=== PATIENT | female | born 1980 | race Caucasian/White ===

== ENCOUNTER 2017-07-02 23:44 | Emergency (ER) | payer MEDICARE, MEDICAID ==
[~2017-07-02] VITALS: Ht 157.5 cm; Wt 79.5 kg
[2017-07-03 00:01] VITALS: BP 163/109
== END 2017-07-03 00:53 | disposition left against medical advice (07) ==
LOC: ER 23:45
DX: K08.89 Other specified disorders of teeth and supporting structures (principal); Z53.21 Procedure and treatment not carried out due to patient leaving prior to being seen by health care provider

== ENCOUNTER 2017-12-14 09:07 | Emergency (ER) | payer MEDICARE, MEDICAID ==
[~2017-12-14] VITALS: Ht 157.5 cm; Wt 81.8 kg
[2017-12-14 09:09] VITALS: BP 135/81
[2017-12-14] MEDS ORDERED: pantoprazole 40mg Tablet.DR PO STA (09:39)
[2017-12-14] MEDS ORDERED: LIDOcaine Viscous 15ml cup MM STA (09:39)
[2017-12-14] MEDS ORDERED: ondansetron 4mg rapidly disintigrating tab PO ONE (09:40)
[2017-12-14] MEDS ORDERED: mag hydrox/Alum hydrox/simeth 30ml oral suspension PO ONE (09:40)
[2017-12-14] MEDS ORDERED: ONDA4TAB12 PO (09:47)
[2017-12-14] MEDS ORDERED: OMEP20TA5 PO (09:47)
== END 2017-12-14 10:11 | disposition home or self-care (01) ==
LOC: ER 09:07
DX: K29.00 Acute gastritis without bleeding (principal); K43.9 Ventral hernia without obstruction or gangrene; M54.9 Dorsalgia, unspecified; M54.2 Cervicalgia; G89.29 Other chronic pain; F17.200 Nicotine dependence, unspecified, uncomplicated; Z90.49 Acquired absence of other specified parts of digestive tract; Z98.51 Tubal ligation status; Z88.8 Allergy status to other drugs, medicaments and biological substances; Z79.899 Other long term (current) drug therapy
CPT/HCPCS: 99284

== ENCOUNTER 2018-04-05 00:58 | Emergency (ER) | payer MEDICARE, MEDICAID ==
[~2018-04-05] VITALS: Ht 157.5 cm; Wt 76.4 kg
[~2018-04-05 00:58] MED LIST: OMEP20TA5 PO; ONDA4TAB12 PO
[2018-04-05] MEDS ORDERED: normal saline 1000ML IV soln IVB ONE (01:20)
[2018-04-05] MEDS ORDERED: LORazepam 2 mg/ml vial IV ONE (01:20)
[2018-04-05 01:52] LABS: COLOR,URINE YELLOW (Yellow); GLUCOSE, URINE NEGATIVE (Neg); KETONES,URINE NEGATIVE (Neg); LEUKOCYTE ESTERASE ,URINE NEGATIVE (Neg); NITRITES, URINE NEGATIVE (Neg); OCCULT BLOOD,URINE NEGATIVE (Neg); PH,URINE 5.5 (4.8-8.0); PROTEIN,URINE 100 mg/dl (Neg); URINE HCG NEGATIVE (NEG)
[2018-04-05 01:53] LABS: D-DIMER 0.56 MG/L FEU (0-0.50)
[2018-04-05 01:55] LABS: BASOPHILS # (AUTO) 0.1 X10'3 (0-0.2); BASOPHILS % (AUTO) 1.1 % (0-1); EOSINOPHILS # (AUTO) 0.2 X10'3 (0-0.9); EOSINOPHILS % (AUTO) 1.7 % (0-6); HEMATOCRIT 33.8 % (35.0-45.0); HEMOGLOBIN 10.5 g/dl (12.0-16.0); LYMPHOCYTES # (AUTO) 4.1 X10'3 (1.1-4.8); LYMPHOCYTES % (AUTO) 31.3 % (21-51); MEAN CORPUSCULAR HEMOGLOBIN 23.1 PG (27.0-31.0); MEAN CORPUSCULAR VOLUME 74.3 FL (78-98); MEAN PLATELET VOLUME 8.8 FL (7.4-10.4); MONOCYTES # (AUTO) 0.8 X10'3 (0-0.9); MONOCYTES % (AUTO) 6.2 % (2-12); NEUTROPHILS # (AUTO) 7.8 X10'3 (1.8-7.7); NEUTROPHILS % (AUTO) 59.7 % (42-75); PLATELET COUNT 442 X10'3 (140-440); RED BLOOD COUNT 4.54 X10'6 (4.20-5.60); RED CELL DISTRIBUTION WIDTH 19.8 % (11.5-14.5)
[2018-04-05 01:58] LABS: UA COLLECTION TYPE CLN CATCH MIDSTREAM
[2018-04-05 01:59] LABS: CLARITY,URINE TURBID (Clear)
[2018-04-05 02:00] LABS: ALANINE AMINOTRANSFERASE 87 U/L (12-78); ALBUMIN 3.7 G/DL (3.4-5.0); ALBUMIN/GLOBULIN RATIO 0.9 (1.1-1.5); ALKALINE PHOSPHATASE 139 IU/L (46-116); ANION GAP 11 (8-16); ASPARTATE AMINO TRANSFERASE 44 U/L (10-37); BILIRUBIN,TOTAL 0.2 MG/DL (0.1-1.0); BLOOD UREA NITROGEN 15 MG/DL (7-18); CALCIUM 9.3 MG/DL (8.5-10.1); CHLORIDE 101 MMOL/L (99-107); CREATININE 0.79 MG/DL (0.40-0.90); GLUCOSE 141 MG/DL (70-104); POTASSIUM 3.5 MMOL/L (3.5-5.1); SODIUM 134 MMOL/L (135-145); TOTAL CARBON DIOXIDE 21.8 MMOL/L (24-32); TOTAL PROTEIN 7.9 G/DL (6.4-8.2); eGFR 82 ML/MIN
[2018-04-05 02:01] LABS: BACTERIA,URINE 2+ /HPF (Neg); MUCUS STRANDS MANY /LPF (Neg); RBC,URINE NONE SEEN /HPF (0-2); SQUAMOUS EPITHELIAL CELL,UR MANY /LPF (FEW); WBC,URINE 0-4 /HPF (0-4)
[2018-04-05 03:08] VITALS: BP 111/79
== END 2018-04-05 03:10 | disposition home or self-care (01) ==
LOC: ER 00:59
DX: R42 Dizziness and giddiness (principal); G89.29 Other chronic pain; M79.7 Fibromyalgia; Z90.49 Acquired absence of other specified parts of digestive tract; Z98.890 Other specified postprocedural states; Z98.51 Tubal ligation status; Z88.8 Allergy status to other drugs, medicaments and biological substances; Z79.899 Other long term (current) drug therapy; Z79.82 Long term (current) use of aspirin
CPT/HCPCS: 36415; 80053; 81001; 81025; 85025; 85379; 93005; 96361; 96374; 99284; J2060; J7030

== ENCOUNTER 2018-06-14 23:32 | Emergency (ER) | payer MEDICARE, MEDICAID ==
[~2018-06-14] VITALS: Ht 157.5 cm; Wt 77.3 kg
[2018-06-15] MEDS ORDERED: HYDROcodone/acetaminophen 5mg/325mg tablet PO ONE ×2 (00:20→01:30)
[2018-06-15] MEDS ORDERED: ketorolac trometh inj. 60 MG/2 ML VIAL IM ONE (00:20)
[2018-06-15] MEDS ORDERED: cloNIDine 0.1 mg tablet PO ONE (01:45)
[2018-06-15] MEDS ORDERED: labetalol 20mg/4ml (5mg/ml) syringe IV PRN (01:45)
[2018-06-15 02:15] VITALS: BP 159/102
== END 2018-06-15 02:31 | disposition home or self-care (01) ==
LOC: ER 23:32
DX: G44.209 Tension-type headache, unspecified, not intractable (principal); G89.29 Other chronic pain; Z86.73 Personal history of transient ischemic attack (TIA), and cerebral infarction without residual deficits; Z90.49 Acquired absence of other specified parts of digestive tract; Z98.51 Tubal ligation status; Z98.890 Other specified postprocedural states; Z88.8 Allergy status to other drugs, medicaments and biological substances; Z79.899 Other long term (current) drug therapy
CPT/HCPCS: 96372; 96374; 99283; J1885; J3490

== ENCOUNTER 2018-07-22 06:01 | Emergency (ER) | payer MEDICARE, MEDICAID ==
[~2018-07-22] VITALS: Ht 157.5 cm; Wt 79.0 kg
[2018-07-22] MEDS ORDERED: ketorolac tromethamine 15mg/ml inj. IM ONE (06:40)
[2018-07-22] MEDS ORDERED: dexamethasone sod phosphate 10mg/ml inj IV STA (07:09)
[2018-07-22] MEDS ORDERED: SUMAtriptan succ. 6 MG/0.5ml vial SQ ONE (07:10)
[2018-07-22] MEDS ORDERED: metoclopramide 5 mg/ml inj IV ONE (07:10)
[2018-07-22] MEDS ORDERED: normal saline 1000ML IV soln IVB ONE (07:10)
[2018-07-22 07:26] VITALS: BP 163/103
== END 2018-07-22 08:06 | disposition home or self-care (01) ==
LOC: ER 06:02
DX: G43.909 Migraine, unspecified, not intractable, without status migrainosus (principal); G89.29 Other chronic pain; M54.9 Dorsalgia, unspecified; Z90.49 Acquired absence of other specified parts of digestive tract; Z98.51 Tubal ligation status; Z88.8 Allergy status to other drugs, medicaments and biological substances; Z86.73 Personal history of transient ischemic attack (TIA), and cerebral infarction without residual deficits
CPT/HCPCS: 96372; 96374; 96375; 99283; J1100; J1885; J2765; J7030; 96361; J3030

== ENCOUNTER 2018-10-13 23:26 | Emergency (ER) | payer MEDICARE, MEDICAID ==
[~2018-10-13] VITALS: Ht 157.5 cm; Wt 79.0 kg
[2018-10-14 00:25] LABS: CLARITY,URINE CLEAR (Clear); COLOR,URINE YELLOW (Yellow); GLUCOSE, URINE NEGATIVE (Neg); KETONES,URINE NEGATIVE (Neg); LEUKOCYTE ESTERASE ,URINE NEGATIVE (Neg); NITRITES, URINE NEGATIVE (Neg); OCCULT BLOOD,URINE NEGATIVE (Neg); PH,URINE 6.5 (4.8-8.0); PROTEIN,URINE NEGATIVE (Neg); UROBILINOGEN,URINE 0.2 E.U/dL (0.2-1.0)
[2018-10-14 00:30] LABS: UA COLLECTION TYPE CLN CATCH MIDSTREAM
[2018-10-14 00:40] LABS: BASOPHILS # (AUTO) 0.2 X10'3 (0-0.2); BASOPHILS % (AUTO) 1.3 % (0-1); EOSINOPHILS # (AUTO) 0.1 X10'3 (0-0.9); EOSINOPHILS % (AUTO) 0.9 % (0-6); HEMOGLOBIN 8.4 g/dl (12.0-16.0); LYMPHOCYTES # (AUTO) 4.3 X10'3 (1.1-4.8); LYMPHOCYTES % (AUTO) 36.6 % (21-51); MEAN CORPUSCULAR HEMOGLOBIN 19.8 PG (27.0-31.0); MEAN CORPUSCULAR HGB CONC 30.1 g/dL (33.0-36.5); MEAN CORPUSCULAR VOLUME 65.8 FL (78-98); MEAN PLATELET VOLUME 7.4 FL (7.4-10.4); MONOCYTES # (AUTO) 0.7 X10'3 (0-0.9); MONOCYTES % (AUTO) 5.7 % (2-12); NEUTROPHILS # (AUTO) 6.6 X10'3 (1.8-7.7); NEUTROPHILS % (AUTO) 55.5 % (42-75); PLATELET COUNT 433 X10'3 (140-440); RED BLOOD COUNT 4.26 X10'6 (4.20-5.60); RED CELL DISTRIBUTION WIDTH 20.2 % (11.5-14.5); WHITE BLOOD COUNT 11.9 X10'3 (4.5-11.0)
[2018-10-14 00:49] LABS: ALANINE AMINOTRANSFERASE 25 U/L (12-78); ALBUMIN 3.3 G/DL (3.4-5.0); ALBUMIN/GLOBULIN RATIO 0.9 (1.1-1.5); ALKALINE PHOSPHATASE 53 IU/L (46-116); AMYLASE 57 U/L (25-115); ANION GAP 7 (8-16); ASPARTATE AMINO TRANSFERASE 15 U/L (10-37); BILIRUBIN,TOTAL 0.2 MG/DL (0.1-1.0); BLOOD UREA NITROGEN 12 MG/DL (7-18); BUN/CREATININE RATIO 17.6 (6.6-38.0); CALCIUM 8.5 MG/DL (8.5-10.1); CHLORIDE 104 MMOL/L (99-107); CREATININE 0.68 MG/DL (0.40-0.90); GLUCOSE 90 MG/DL (70-104); LIPASE 178 U/L (73-393); POTASSIUM 3.6 MMOL/L (3.5-5.1); SODIUM 137 MMOL/L (135-145); TOTAL CARBON DIOXIDE 26.5 MMOL/L (24-32); eGFR > 90 ML/MIN
[2018-10-14 01:38] LABS: ANISOCYTOSIS 3+; ELLIPTOCYTES FEW; MICROCYTOSIS 2+; PLATELET ESTIMATE NORMAL; TARGET CELLS FEW
--- NOTE | 2018-10-14 01:54 | NUR ---
Shikha galloway in [facility] - 10/14/[address] AT [facility].
[2018-10-14 02:00] VITALS: BP 136/97
--- NOTE | 2018-10-14 02:00 | NUR ---
DR. GORMAN AT BEDSIDE TALKING WITH PT AND HER BOYFRIEND ABOUT RESULTS. PT REPORTS FRUSTRATION WITH FINDINGS SHE BELIEVES SOMETHING IS WRONG THIS PAIN TO HER LEFT ABD CAME ON SUDDENLY A FEW DAYS AGO AND IS ONLY WORSENING. MD REPORTS SHE BELIEVES IT IS MUSCULAR FROM HER COUGHING. PT THEN REPORTED TO ME SHE WAS READY TO LEAVE AND HAD PULLED OUT HER IV. SHE WAS TEARFUL. PT WAS POLITE AT TIME OF DC BUT REITERATED HER FRUSTRATION ABOUT BEING DISCHAREGED.
[2018-10-14] MEDS ORDERED: BENZ-16 PO (02:09)
[2018-10-14 08:34] LABS: URINE HCG NEGATIVE (NEG)
== END 2018-10-14 02:17 | disposition home or self-care (01) ==
LOC: ER 23:27
DX: R10.9 Unspecified abdominal pain (principal); R42 Dizziness and giddiness; R11.2 Nausea with vomiting, unspecified; G43.909 Migraine, unspecified, not intractable, without status migrainosus; G89.29 Other chronic pain; Z86.73 Personal history of transient ischemic attack (TIA), and cerebral infarction without residual deficits; Z90.49 Acquired absence of other specified parts of digestive tract; Z98.51 Tubal ligation status; Z88.8 Allergy status to other drugs, medicaments and biological substances; Z79.899 Other long term (current) drug therapy
CPT/HCPCS: 36415; 80053; 81003; 81025; 82150; 83690; 85025; 85610; 99283

== ENCOUNTER 2019-05-14 12:29 | Emergency (ER) | payer MEDICARE, MEDICAID ==
[~2019-05-14] VITALS: Ht 157.5 cm; Wt 76.4 kg
[2019-05-14] MEDS ORDERED: diphenhydrAMINE 50 mg/ml inj IV ONE (14:50)
[2019-05-14] MEDS ORDERED: normal saline 1000ML IV soln IVB ONE (14:50)
[2019-05-14] MEDS ORDERED: ketorolac trometh. 30mg/ml inj. IV ONE (14:50)
[2019-05-14] MEDS ORDERED: proCHLORperazine 10 MG/2 ml inj IV ONE (14:55)
[2019-05-14] MEDS ORDERED: SUMAtriptan succ. 6 MG/0.5ml vial SQ ONE (14:55)
--- NOTE | 2019-05-14 15:19 | NUR ---
spoke to pt re toradol she shtates that she has taken it before, no issues in the past, IM
[2019-05-14 15:45] VITALS: BP 126/85
[2019-05-14] MEDS ORDERED: ketorolac trometh inj. 60 MG/2 ML VIAL IM ONE (15:45)
== END 2019-05-14 16:04 | disposition home or self-care (01) ==
LOC: ER 12:30
DX: G43.909 Migraine, unspecified, not intractable, without status migrainosus (principal); I10 Essential (primary) hypertension; M79.7 Fibromyalgia; G89.29 Other chronic pain; F41.9 Anxiety disorder, unspecified; F32.9 Major depressive disorder, single episode, unspecified; F31.9 Bipolar disorder, unspecified; F10.99 Alcohol use, unspecified with unspecified alcohol-induced disorder; Z79.899 Other long term (current) drug therapy; Z90.49 Acquired absence of other specified parts of digestive tract; Z98.51 Tubal ligation status; Z98.890 Other specified postprocedural states; Z86.73 Personal history of transient ischemic attack (TIA), and cerebral infarction without residual deficits; Z88.8 Allergy status to other drugs, medicaments and biological substances; Y90.9 Presence of alcohol in blood, level not specified
CPT/HCPCS: 96372; 99283; J1885

== ENCOUNTER 2019-12-06 08:04 | Emergency (ER) | payer MEDICARE, MEDICAID ==
[~2019-12-06] VITALS: Ht 157.5 cm; Wt 79.0 kg
--- NOTE | 2019-12-06 08:27 | NUR ---
seen by dr hernandez
[2019-12-06] MEDS ORDERED: acetaminophen 325mg tablet PO ONE (08:30)
[2019-12-06] MEDS ORDERED: normal saline 1000ml 1,000 ML IV ONE (08:30)
[2019-12-06] MEDS ORDERED: aspirin 325mg tablet PO ONE (08:30)
[2019-12-06] MEDS ORDERED: metoclopramide 5 mg/ml inj IV ONE (08:30)
[2019-12-06] MEDS ORDERED: SUMAtriptan succ. 6 MG/0.5ml vial SQ ONE (08:30)
[2019-12-06] MEDS ORDERED: diphenhydrAMINE 50 mg/ml inj IV ONE (08:30)
[2019-12-06] MEDS ORDERED: ondansetron/PF 4mg/2ml inj IV ONE (08:40)
--- NOTE | 2019-12-06 09:06 | NUR ---
state still has cough and upest stomach but headache is getting better
[2019-12-06] MEDS ORDERED: proCHLORperazine 10 MG/2 ml inj IV ONE (09:15)
[2019-12-06] MEDS ORDERED: LORazepam 2 mg/ml vial IV ONE (09:15)
[2019-12-06 09:16] VITALS: BP 132/75
== END 2019-12-06 09:39 | disposition home or self-care (01) ==
LOC: ER 08:05
DX: R51 Headache (principal); G89.29 Other chronic pain; F41.9 Anxiety disorder, unspecified; F31.9 Bipolar disorder, unspecified; Z86.73 Personal history of transient ischemic attack (TIA), and cerebral infarction without residual deficits; Z90.49 Acquired absence of other specified parts of digestive tract; Z98.51 Tubal ligation status; Z98.890 Other specified postprocedural states; Z72.89 Other problems related to lifestyle; Z88.8 Allergy status to other drugs, medicaments and biological substances; Z79.899 Other long term (current) drug therapy
CPT/HCPCS: 96372; 96374; 96375; 99284; J1200; J2405; J2765; J7030; J3030

== ENCOUNTER 2020-02-08 21:23 | Emergency (ER) | payer MEDICARE, MEDICAID ==
[~2020-02-08] VITALS: Ht 157.5 cm; Wt 77.3 kg
[2020-02-08 22:09] LABS: URINE HCG NEGATIVE (NEG)
[2020-02-08 22:14] LABS: CLARITY,URINE CLEAR (Clear); COLOR,URINE STRAW (Yellow); GLUCOSE, URINE NEGATIVE (Neg); KETONES,URINE NEGATIVE (Neg); LEUKOCYTE ESTERASE ,URINE NEGATIVE (Neg); NITRITES, URINE NEGATIVE (Neg); OCCULT BLOOD,URINE NEGATIVE (Neg); PROTEIN,URINE NEGATIVE (Neg); UROBILINOGEN,URINE 0.2 E.U/dL (0.2-1.0)
[2020-02-08 22:25] LABS: UA COLLECTION TYPE CLN CATCH MIDSTREAM
--- NOTE | 2020-02-08 22:26 | NUR ---
HECTOR Carreon at bedside for evaluation of patient.
[2020-02-08] MEDS ORDERED: ondansetron 4mg rapidly disintigrating tab PO ONE (22:40)
[2020-02-08] MEDS ORDERED: pantoprazole 40mg Tablet.DR PO ONE (22:40)
[2020-02-08 22:57] LABS: ALANINE AMINOTRANSFERASE 27 U/L (12-78); ALBUMIN 3.4 G/DL (3.4-5.0); ALBUMIN/GLOBULIN RATIO 0.9 (1.1-1.5); ALKALINE PHOSPHATASE 60 IU/L (46-116); AMYLASE 55 U/L (25-115); ANION GAP 7 (8-16); ASPARTATE AMINO TRANSFERASE 28 U/L (10-37); BILIRUBIN,TOTAL 0.2 MG/DL (0.1-1.0); BLOOD UREA NITROGEN 5 MG/DL (7-18); BUN/CREATININE RATIO 8.2 (6.6-38.0); CALCIUM 8.3 MG/DL (8.5-10.1); CHLORIDE 107 MMOL/L (99-107); CREATININE 0.61 MG/DL (0.40-0.90); GLUCOSE 76 MG/DL (70-104); LIPASE 210 U/L (73-393); POTASSIUM 3.2 MMOL/L (3.5-5.1); SODIUM 140 MMOL/L (135-145); TOTAL CARBON DIOXIDE 25.7 MMOL/L (24-32); TOTAL PROTEIN 7.4 G/DL (6.4-8.2); eGFR > 90 ML/MIN
[2020-02-08 23:04] LABS: HEMATOCRIT 27.9 % (35.0-45.0); HEMOGLOBIN 8.8 g/dl (12.0-16.0); MEAN CORPUSCULAR HEMOGLOBIN 18.4 PG (27.0-31.0); MEAN CORPUSCULAR HGB CONC 31.5 g/dL (33.0-36.5); MEAN CORPUSCULAR VOLUME 58.3 FL (78-98); MEAN PLATELET VOLUME 8.5 FL (7.4-10.4); PLATELET COUNT 494 X10'3 (140-440); RED BLOOD COUNT 4.79 X10'6 (4.20-5.60); RED CELL DISTRIBUTION WIDTH 19.9 % (11.5-14.5); WHITE BLOOD COUNT 10.5 X10'3 (4.5-11.0)
[2020-02-08 23:09] LABS: TOTAL CELLS COUNTED 100
[2020-02-08 23:10] LABS: ANISOCYTOSIS 3+; HYPOCHROMASIA 3+; MICROCYTOSIS 2+; PLATELET ESTIMATE INCREASED
[2020-02-08 23:11] LABS: ELLIPTOCYTES FEW; POLYCHROMASIA 1+; TARGET CELLS 1+
[2020-02-08 23:41] VITALS: BP 160/76
== END 2020-02-08 23:42 | disposition home or self-care (01) ==
LOC: ER 21:24
DX: K21.9 Gastro-esophageal reflux disease without esophagitis (principal); D64.9 Anemia, unspecified; G43.909 Migraine, unspecified, not intractable, without status migrainosus; G89.29 Other chronic pain; F41.9 Anxiety disorder, unspecified; F31.9 Bipolar disorder, unspecified; Z86.73 Personal history of transient ischemic attack (TIA), and cerebral infarction without residual deficits; Z90.49 Acquired absence of other specified parts of digestive tract; Z98.51 Tubal ligation status; Z88.8 Allergy status to other drugs, medicaments and biological substances; Z79.899 Other long term (current) drug therapy
CPT/HCPCS: 36415; 80053; 81003; 81025; 82150; 83690; 85007; 85025; 99283

== ENCOUNTER 2024-05-15 05:10 | Emergency (ER) | payer MEDICARE, MEDICAID ==
[~2024-05-15] VITALS: Ht 157.5 cm; Wt 77.3 kg
[~2024-05-15 05:10] MED LIST changes: +OMEP20TA43 PO; -OMEP20TA5 PO; +ONDA-243 PO; +ONDA-245 PO; -ONDA4TAB12 PO
[2024-05-15 05:12] VITALS: BP 170/113; PULSE 113; RESP 18; TEMP 98.4; O2SAT 97
== END 2024-05-15 10:04 | disposition left against medical advice (07) ==
LOC: ER 05:10
DX: R22.0 Localized swelling, mass and lump, head (principal); Z88.8 Allergy status to other drugs, medicaments and biological substances; Z53.21 Procedure and treatment not carried out due to patient leaving prior to being seen by health care provider

== ENCOUNTER 2024-05-23 19:09 | Inpatient (IN) | payer MEDICARE, MEDICAID ==
[~2024-05-23] VITALS: Ht 157.5 cm; Wt 64.0 kg
[2024-05-23] MEDS: LORazepam 2 mg/ml vial ONE ×2 (21:34→22:09)
[2024-05-23 21:57] LABS: HEMOGLOBIN 10.9 g/dl (12.0-16.0); MEAN CORPUSCULAR VOLUME 83.6 FL (78-98); NEUTROPHILS # (AUTO) 8.1 X10'3 (1.8-7.7)
[2024-05-23 21:59] LABS: BASOPHILS # (AUTO) 0.1 X10'3 (0-0.2); BASOPHILS % (AUTO) 0.5 % (0-1); EOSINOPHILS # (AUTO) 0.2 X10'3 (0-0.9); EOSINOPHILS % (AUTO) 1.2 % (0-6); HEMATOCRIT 39.1 % (35.0-45.0); LYMPHOCYTES # (AUTO) 4.8 X10'3 (1.1-4.8); LYMPHOCYTES % (AUTO) 32.3 % (21-51); MEAN CORPUSCULAR HEMOGLOBIN 23.3 PG (27.0-31.0); MEAN CORPUSCULAR HGB CONC 27.8 g/dL (33.0-36.5); MEAN PLATELET VOLUME 9.3 FL (7.4-10.4); MONOCYTES # (AUTO) 1.7 X10'3 (0-0.9); MONOCYTES % (AUTO) 11.5 % (2-12); NEUTROPHILS % (AUTO) 54.5 % (42-75); PLATELET COUNT 197 X10'3 (140-440); RED BLOOD COUNT 4.68 X10'6 (4.20-5.60); RED CELL DISTRIBUTION WIDTH 29.1 % (11.5-14.5); WHITE BLOOD COUNT 14.8 X10'3 (4.5-11.0)
[2024-05-23] MEDS: normal saline 1000ML IV soln IV ONE (22:10)
[2024-05-23 22:13] LABS: ALBUMIN 3.7 G/DL (3.4-5.0); ANION GAP 30 (8-16); BLOOD UREA NITROGEN 5 MG/DL (7-18); BUN/CREATININE RATIO 4.3 (10.0-20.0); CALCIUM 9.3 MG/DL (8.5-10.1); CHLORIDE 97 MMOL/L (99-107); CREATININE 1.16 MG/DL (0.40-0.90); GLUCOSE 186 MG/DL (70-104); MAGNESIUM 2.1 MG/DL (1.5-2.4); SODIUM 139 MMOL/L (135-145); eCRCL 49 ML/MIN; eGFR 51 ML/MIN
[2024-05-23 22:15] LABS: ETHANOL < 10 MG/DL (<10)
[2024-05-23 22:18] LABS: POTASSIUM 2.9 MMOL/L (3.5-5.1); TOTAL CARBON DIOXIDE 12.3 MMOL/L (24-32)
[2024-05-23] MEDS ORDERED: magnesium sulf-water 2g/50mL 50 ML IV PRN (22:25)
[2024-05-23] MEDS ORDERED: magnesium sulf-water 4G/100mL 100 ML IV PRN (22:25)
[2024-05-23] MEDS ORDERED: potassium Cl 20 mEq SR tablet PO PRN ×2 (22:25)
[2024-05-23] MEDS ORDERED: magnesium Cl slow-release 64mg tablet PO PRN (22:25)
[2024-05-23 22:33] LABS: ANISOCYTOSIS 3+; MICROCYTOSIS 3+; PLATELET ESTIMATE NORMAL; POIKILOCYTOSIS 1+
[2024-05-23 22:48] LABS: LACTIC SEPSIS 21.3 MMOL/L (0.4-2.0)
[2024-05-23] MEDS: potassium Cl 40MEQ/1/2NS 520ml 520 ML IV PRN (22:58)
[2024-05-24] MEDS: ringers solution, lactated 1000ml IV soln IV ONE (00:19)
[2024-05-24] MEDS: levetiracetam-NACL1000mg/100ml 100 ML IV STA (00:20)
[2024-05-24] MEDS ORDERED: magnesium hydroxide 30ml (MOM) UD suspension PO PRN (01:20)
[2024-05-24] MEDS ORDERED: mag hydrox/Alum hydrox/simeth 30ml oral suspension PO PRN (01:20)
[2024-05-24] MEDS ORDERED: haloperidol lactate 5mg/ml inj IM PRN (01:20)
[2024-05-24] MEDS ORDERED: magnesium Cl slow-release 64mg tablet PO PRN (01:20)
[2024-05-24] MEDS ORDERED: morphine 2 MG/ML inj. syringe IV PRN ×2 (01:20)
[2024-05-24] MEDS ORDERED: potassium Cl 40MEQ/1/2NS 520ml 520 ML IV PRN (01:20)
[2024-05-24] MEDS ORDERED: dextrose 50%-water 50ml dispensing syringe IV PRN (01:20)
[2024-05-24] MEDS ORDERED: potassium Cl 20 mEq SR tablet PO PRN ×2 (01:20)
[2024-05-24] MEDS ORDERED: ondansetron/PF 4mg/2ml inj IV PRN (01:20)
[2024-05-24] MEDS ORDERED: acetaminophen 325mg tablet PO PRN (01:20)
[2024-05-24] MEDS ORDERED: magnesium sulf-water 2g/50mL 50 ML IV PRN (01:20)
[2024-05-24] MEDS ORDERED: magnesium sulf-water 4G/100mL 100 ML IV PRN (01:20)
[2024-05-24 01:39] LABS: MAGNESIUM 2.3 MG/DL (1.5-2.4); POTASSIUM 3.9 MMOL/L (3.5-5.1)
[2024-05-24 01:53] LABS: URINE HCG NEGATIVE (NEG)
[2024-05-24 02:01] LABS: BILIRUBIN,URINE NEGATIVE (Neg); CLARITY,URINE CLEAR (Clear); COLOR,URINE YELLOW (Yellow); GLUCOSE, URINE NEGATIVE (Neg); KETONES,URINE TRACE mg/dl (Neg); LEUKOCYTE ESTERASE ,URINE LARGE (Neg); NITRITES, URINE NEGATIVE (Neg); OCCULT BLOOD,URINE LARGE (Neg); PH,URINE 7.5 (4.8-8.0); PROTEIN,URINE 30 mg/dl (Neg); UROBILINOGEN,URINE 0.2 E.U/dL (0.2-1.0)
[2024-05-24 02:06] LABS: URINE AMPHETAMINE SCREEN NEGATIVE (Neg); URINE BARBITUATE SCREEN NEGATIVE (Neg); URINE BENZODIAZEPINES SCREEN NEGATIVE (Neg); URINE CANNABINOID SCREEN NEGATIVE (Neg); URINE COCAINE SCREEN NEGATIVE (Neg); URINE METHADONE SCREEN NEGATIVE (Neg); URINE OPIATE SCREEN NEGATIVE (Neg); URINE PHENCYCLIDINE SCREEN NEGATIVE (Neg)
[2024-05-24 02:10] LABS: UA COLLECTION TYPE CLN CATCH MIDSTREAM
[2024-05-24 02:13] LABS: WBC,URINE 30-50 /HPF (0-4)
[2024-05-24 02:14] LABS: BACTERIA,URINE 1+ /HPF (Neg); MUCUS STRANDS FEW /LPF (Neg); SQUAMOUS EPITHELIAL CELL,UR MODERATE /LPF (FEW)
[2024-05-24 02:52] LABS: TOTAL PROTEIN,URINE RANDOM 52.1 MG/DL
[2024-05-24 03:02] LABS: OSMOLALITY UA 163.5 MOSM/K (50-1400)
[2024-05-24] MEDS: sodium bicarbonate 1meq/ml inj 150 ML in dextrose 5%-water 1,000 ML IV SCH (03:08)
[2024-05-24] MEDS: normal saline 1000ml 1,000 ML IV ONE (03:11)
[2024-05-24] MEDS: normal saline 1000ml 1,000 ML IV SCH (03:19)
[2024-05-24 03:20] LABS: POTASSIUM 4.1 MMOL/L (3.5-5.1)
[2024-05-24 05:25] VITALS: BP 124/67; PULSE 88; RESP 22; TEMP 98.2; O2SAT 94
[2024-05-24] MEDS: LORazepam 2 mg/ml vial IV PRN ×2 (05:35→08:48)
[2024-05-24 06:00] VITALS: BP 119/75; PULSE 77; RESP 18; TEMP 97.4; O2SAT 97
[2024-05-24 06:01] VITALS: RESP 22
[2024-05-24] MEDS: K and/or MAG REPLACEMENT MC SCH ×2 (08:00)
[2024-05-24] MEDS: docusate sod 100mg capsule PO SCH (08:00)
[2024-05-24] MEDS: thiamine 100mg/ml 2ml inj. IV SCH (08:48)
[2024-05-24] MEDS: CefTRIAXone/D5W-Rocephin 1gm 50 ML IV SCH (08:48)
[2024-05-24] MEDS: folic acid 1mg/0.2ml inj IV SCH (08:48)
[2024-05-24 11:45] LABS: BASOPHILS % (AUTO) 0.3 % (0-1); EOSINOPHILS # (AUTO) 0.1 X10'3 (0-0.9); EOSINOPHILS % (AUTO) 0.8 % (0-6); HEMATOCRIT 26.8 % (35.0-45.0); HEMOGLOBIN 8.1 g/dl (12.0-16.0); LYMPHOCYTES # (AUTO) 1.1 X10'3 (1.1-4.8); LYMPHOCYTES % (AUTO) 16.5 % (21-51); MEAN CORPUSCULAR HEMOGLOBIN 23.5 PG (27.0-31.0); MEAN CORPUSCULAR HGB CONC 30.1 g/dL (33.0-36.5); MEAN CORPUSCULAR VOLUME 78.1 FL (78-98); MEAN PLATELET VOLUME 8.9 FL (7.4-10.4); MONOCYTES # (AUTO) 0.6 X10'3 (0-0.9); MONOCYTES % (AUTO) 8.8 % (2-12); NEUTROPHILS % (AUTO) 73.6 % (42-75); PLATELET COUNT 126 X10'3 (140-440); RED BLOOD COUNT 3.43 X10'6 (4.20-5.60); RED CELL DISTRIBUTION WIDTH 28.8 % (11.5-14.5); WHITE BLOOD COUNT 6.8 X10'3 (4.5-11.0)
[2024-05-24 12:00] VITALS: BP 129/100; PULSE 100; RESP 20; TEMP 97.7; O2SAT 96
[2024-05-24 12:06] LABS: ANISOCYTOSIS 3+; MICROCYTOSIS 1+; PLATELET ESTIMATE DECREASED; POLYCHROMASIA FEW; TARGET CELLS FEW
[2024-05-24 12:17] LABS: ALANINE AMINOTRANSFERASE 46 U/L (12-78); ALBUMIN 2.6 G/DL (3.4-5.0); ALBUMIN/GLOBULIN RATIO 0.8 (1.1-1.5); ALKALINE PHOSPHATASE 78 IU/L (46-116); ANION GAP 10 (8-16); ASPARTATE AMINO TRANSFERASE 53 U/L (10-37); BILIRUBIN,TOTAL 0.5 MG/DL (0.1-1.0); BLOOD UREA NITROGEN 3 MG/DL (7-18); BUN/CREATININE RATIO 10.7 (10.0-20.0); CALCIUM 6.8 MG/DL (8.5-10.1); CHLORIDE 109 MMOL/L (99-107); CREATININE 0.28 MG/DL (0.40-0.90); GLUCOSE 83 MG/DL (70-104); POTASSIUM 3.6 MMOL/L (3.5-5.1); SODIUM 142 MMOL/L (135-145); TOTAL CARBON DIOXIDE 23.4 MMOL/L (24-32); TOTAL PROTEIN 5.8 G/DL (6.4-8.2); eCRCL 205 ML/MIN; eGFR > 90 ML/MIN
[2024-05-24] MEDS: NICOTINE POLACRILEX 2 MG LOZENGE BC PRN (13:11)
[2024-05-24 15:00] VITALS: BP 133/73; PULSE 97; RESP 17; TEMP 97.6; O2SAT 97
[2024-05-28] MEDS ORDERED: thiamine 100mg tablet PO SCH (08:00)
[2024-05-28] MEDS ORDERED: folic acid 1mg tablet PO SCH (08:00)
== END 2024-05-24 16:10 | disposition left against medical advice (07) | DRG 871 ==
LOC: ER 19:09 → ED HOLD 05-24 01:15 → PCU 3S 05-24 05:15
PROVIDERS: ADMIT Internal Medicine; ATTEND Family Medicine
DX: A41.9 Sepsis, unspecified organism (principal); N17.0 Acute kidney failure with tubular necrosis; E87.20 Acidosis, unspecified; F10.939 Alcohol use, unspecified with withdrawal, unspecified; N39.0 Urinary tract infection, site not specified; E72.20 Disorder of urea cycle metabolism, unspecified; G40.409 Other generalized epilepsy and epileptic syndromes, not intractable, without status epilepticus; F31.9 Bipolar disorder, unspecified; G43.909 Migraine, unspecified, not intractable, without status migrainosus; F41.9 Anxiety disorder, unspecified; G47.00 Insomnia, unspecified; M54.9 Dorsalgia, unspecified; M79.7 Fibromyalgia; Z53.21 Procedure and treatment not carried out due to patient leaving prior to being seen by health care provider; I10 Essential (primary) hypertension; E87.6 Hypokalemia; Z86.73 Personal history of transient ischemic attack (TIA), and cerebral infarction without residual deficits; Z87.891 Personal history of nicotine dependence; Z88.8 Allergy status to other drugs, medicaments and biological substances; Z90.49 Acquired absence of other specified parts of digestive tract; Z98.891 History of uterine scar from previous surgery
CPT/HCPCS: 36415; 70450; 71045; 80048; 80053; 80305; 80320; 81001; 81025; 82140; 82570; 82948; 83605; 83690; 83735; 83930; 83935; 84132; 84145; 84156; 84300; 84484; 85008; 85025; 87040; 87081; 87088; 87207; 93005; 96365; 96375; 99285; A4615; G0378; J0696; J1953; J2060; J3411; J3480; J3490; J7030; J7070; J7120

== ENCOUNTER 2024-11-11 07:59 | Inpatient (IN) | payer MEDICARE, MEDICAID ==
[~2024-11-11] VITALS: Ht 156.2 cm; Wt 76.4 kg
[2024-11-11 08:03] VITALS: TEMP 98.8
[2024-11-11 08:32] LABS: MEAN PLATELET VOLUME 8.1 FL (7.4-10.4); RED CELL DISTRIBUTION WIDTH 29.9 % (11.5-14.5)
--- NOTE | 2024-11-11 08:39 | Physician Documentation ---
History of Present Illness ~ Chief Complaint: ETOH Stated Complaint: WITHDRAWL Time Seen by MD: 08:25 Primary Medical Doctor: riky groves HPI This is a 44-year-old female with history of chronic pain, currently off pain medication, self medicating with alcohol, drinks a bottle of rum a day, comes in for evaluation of anxiety, high blood pressure, shakes, similar to prior alcohol withdrawal. Last drink yesterday afternoon. No particular palliating or aggravating factors. Does have history of alcohol withdrawal on day five after quitting drinking. She did have generalized seizure at the time. Patient denies any chest pain or difficulty breathing at this time. She attempted to drink this morning, however she threw it up. She wants to quit drinking. However she states that of a she also will need to get enrolled in some sort of pain management to manage her chronic pain as currently alcohol is the only needs to control her chronic pain Medication Reconciliation Allergies: Coded Allergies: oxytocin (Verified Allergy, Severe, 05/15/24) naproxen (Verified Allergy, Unknown, 05/15/24) Scheduled Omeprazole (Omeprazole), 1 TAB PO DAILY Ondansetron 8mg ODT (Ondansetron Odt), 1 TAB PO Q6H Scheduled PRN ONDANSETRON ODT 4mg tablet (Ondansetron Odt), 1 TABLET PO Q6H PRN for nausea/vomiting Past Medical History Past Medical History: CVA/TIA/Stroke, Headache, Migraine, Pancreatitis, Chronic Pain, Chronic Back Pain, Fibromyalgia, Anxiety, Bipolar, Depression Past Surgical History: cholecystectomy, , tubal ligation Alcohol Use: Occasionally Drug Use: none Lives with: Family Lives In: Home Occupation: disabled Review of Systems ROS 10 point review of systems was performed and unless noted above in HPI is negative for acute process/complaint. Physical Exam Vital Signs: Temperature: 98.8, Source: Temporal, Heart Rate: 121, Respiratory Rate: 19, BP: 184/103, Pulse Oximetry: 98, Weight: 76.360 Oxygen Flow Rate: 0 Physical Exam GENERAL: Awake, alert, oriented, GCS 15, no apparent distress, non-toxic appearing, answers questions, follows commands appropriately. HEENT: Atraumatic, normocephalic, pupils equal, extraocular muscles intact, sclerae anicteric, mucus membranes moist, oropharynx is clear, no stridor. NECK: supple, full active range of motion, trachea midline, no thyromegaly, no lymphadenopathy, no JVD. CARDIOVASCULAR: Tachycardic and regular rate/rhythm, no murmurs/gallops/rubs, Pulses are 2+ in all extremities and symmetric. Capillary refill less than 2 seconds. PULMONARY: Nonlabored, good air movement ,no respiratory distress, speaking in full sentences, clear to auscultation bilaterally, no wheezing, no ronchi, no rales, no accessory muscle use. GASTROINTESTINAL: Soft, non-tender, non-distended, normal active bowel sounds, no organomegaly, no pulsatile masses, no CVA tenderness. NEUROLOGIC: Lucid with normal mental status. Normal facial symmetry. Moves all extremities symmetrically and with purpose. No truncal ataxia. Speech is fluid without evidence of dysarthria or aphasia, no focal deficits appreciated. MUSCULOSKELETAL: There is full range of motion of all extremities. There is no joint pain or joint swelling or joint erythema. There is no muscle pain or tenderness or swelling. EXTREMITIES: warm, well-perfused, no cyanosis, no clubbing, no edema, no acute deformities. Skin: warm, dry, no rashes or lesions, no jaundice, no petechiae orpurpura. No ecchymosis. PSYCHIATRIC: Anxious affect, normal insight, normal concentration. Focused exam: Tremulous, tongue fasciculations noted Progress Results/Orders Results/Orders Orders - SHAHNAZ BETANCOURT DO Urinalysis, Cult If Indicated (11/11/24 08:09) Hcg, Ur Ql (11/11/24 08:09) Mixed Venous (11/11/24 ) Ketones,Urine (11/11/24 08:25) Drug Screen, Urine (11/11/24 08:25) [facility] Withdr (11/11/24 08:25) Phenobarbital Inj (Phenobarbital Inj.) (11/11/24 09:00) Completed Orders - SHAHNAZ BETANCOURT DO Cbc/Diff (11/11/24 08:09) Lipase (11/11/24 08:09) CMP (11/11/24 08:09) Normal Saline 1000ml (Sodium Chloride 10 (11/11/24 08:25) Phenobarbital Inj (Phenobarbital Inj.) (11/11/24 20:00) Ethanol (11/11/24 08:25) Lorazepam Inj (Ativan Inj) (11/11/24 09:25) Medications Received in ER Medications (Trade) Dose Ordered Sig/Emre Route PRN Reason Start Time Stop Time Status Last Admin Dose Admin Sodium Chloride 1,000 ml @ 1,000 mls/hr ONCE ONCE IV 11/11/24 08:25 11/11/24 09:24 DC 11/11/24 09:16 1,000 MLS/HR (phenoBARBITAL inj.) 130 mg Q12H IV 11/11/24 09:00 11/11/24 09:18 130 MG (Ativan inj) 1 mg ONCE ONCE IV 11/11/24 09:25 11/11/24 09:26 DC 11/11/24 09:29 1 MG Vital Signs 11/11/24 11/11/24 08:03 10:11 Temp 98.8 Pulse 121 103 Resp 19 19 B/P (MAP) 184/103 153/87 (109) Pulse Ox 98 98 O2 Flow Rate 0 Laboratory Tests Test 11/11/24 08:25 White Blood Count 11.9 H Red Blood Count 4.41 Hemoglobin 10.1 L Hematocrit 33.2 L Mean Corpuscular Volume 75.3 L Mean Corpuscular Hemoglobin 22.9 L Mean Corpuscular Hemoglobin Concent 30.5 L Red Cell Distribution Width 29.9 H Platelet Count 321 Mean Platelet Volume 8.1 Neutrophils (%) (Auto) 77.0 H Lymphocytes (%) (Auto) 15.6 L Monocytes (%) (Auto) 5.7 Eosinophils (%) (Auto) 1.0 Basophils (%) (Auto) 0.7 Neutrophils # (Auto) 9.2 H Lymphocytes # (Auto) 1.9 Monocytes # (Auto) 0.7 Eosinophils # (Auto) 0.1 Basophils # (Auto) 0.1 CBC Comment Platelet Estimate Normal Red Blood Cell Morphology Perf Polychromasia Few Hypochromasia 1+ Basophilic Stippling Anisocytosis 3+ Microcytosis 1+ Target Cells Few Sodium Level 136 Potassium Level 3.6 Chloride Level 101 Carbon Dioxide Level 24.2 Anion Gap 11 Blood Urea Nitrogen 2 L Creatinine 0.51 Estimated GFR/1.73 m2 > 90 BUN/Creatinine Ratio 3.9 L Glucose Level 123 H Calcium Level 7.7 L Total Bilirubin 0.7 Aspartate Amino Transf (AST/SGOT) 34 Alanine Aminotransferase (ALT/SGPT) 22 Alkaline Phosphatase 116 Total Protein 7.2 Albumin 2.7 L Globulin 4.5 H Albumin/Globulin Ratio 0.6 L Lipase 44 Chemistry Comments Ethyl Alcohol Level < 10 Medical Decision Making Findings Facility Status: ED Holds, RME process The plan was discussed with the patient, who demonstrates clear understanding of the plan and is in agreement with the plan unless otherwise noted in the chart. All questions have been answered, all concerns were addressed unless otherwise documented. I was available throughout their ED stay for frequent reassessment and questions. Differential Diagnoses (considered and possible or likely): [Alcohol intoxication, alcohol withdrawal, complicated versus uncomplicated, electrolyte derangement, nausea vomiting, dehydration] ??Differential Diagnoses (considered and unlikely, not requiring evaluation currently): [Denies any other complaints at this time] MDM Data Please see [facility] for the following: Independent Historians and external Records Review. Historian: [Patient] Independent Historians: ?[Record review] Medication Management: [Reviewed medication list] Social History and determinants: [Reviewed] Please see the body of the note for the following: Any independent interpretations of ECG, imaging studies. All vitals signs/haemodynamics, ordered tests were independently reviewed and interpreted by myself. Nursing triage complaint and vitals reviewed, additional nursing notes were reviewed as available and I agree unless otherwise noted or documented in contradiction in the chart Vital Signs: Independently reviewed Labs: Independently interpreted Imaging: Independently interpreted Old Medical Records: Independently reviewed, see HPI for relevant summary and information Pulse Oximetry: [100%] interpreted as [normal on room air] by me [Cartographic Engineer: Tachycardic Rate, Regular rhythm, no ectopy, sinus tachycardia. reviewed and interpreted by me] Additionally notably showing: [Hemodynamics reviewed. The patient was not febrile, tachycardic, improved with the phenobarb and Ativan. Still hypotensive. Also improved. No evidence of respiratory distress. Laboratory workup notable for mild anemia. Chemistry shows a mild hypocalcemia, hypoalbuminemia, normal lipase. Toxicology shows negative ethanol.] Tests considered but not ordered include: [Imaging has been considerably does not appear to be necessary given presentation for alcohol withdrawal] Social Determinants of Health Impact: Patient was evaluated in [facility] [place] to healthcare due to below par ratio of patient to medical providers. [] Comorbid Conditions Impacting Present Evaluation and Care/Treatment: [Alcoholism, chronic pain] Management Discussions with other Healthcare Providers: [Hospitalist regarding admission] Treatment and Disposition Medication Management (Given or considered): []. See EMR for details Consideration for Hospitalization/Escalation/Deescalation of Care: Admission for observation has been considered, it appears to be necessary for further ma nagement of her alcohol withdrawal which is unlikely to be successful if managed outpatient with Librium. Additionally patient will need to address her chronic pain in some way in order to prevent relapse. ?ED Course:?[Patient had improved with the phenobarbital and Ativan treatment. She will require admission for alcohol withdrawal.] ?Shared decision making:?[] Code status:?FULL Please see the full Electronic Medical Record for full details of nursing documentation, medications list, other records of complete past medical history and conditions, vital signs, laboratory studies, and any radiologic study interpretations by radiologists. Portions of this note were completed using [employer] dictation software and as a result there may exist minor errors in spelling. I have reviewed elements of past family and social history and agree as included in note. Departure Disposition: ADMITTED INPATIENT Impression: Primary Impression: Alcohol withdrawal syndrome Additional Impressions: Alcohol dependence Chronic pain Condition: Improved Referrals: NO PRIMARY CARE PROVIDER (PCP) Signature Scribe Signature: No scribe Attestation: This note accurately reflects clinical decisions, work performed by myself, DO ASIA Lawrence NICHOLAS M DO Nov 11, 2024 08:39
[2024-11-11 08:56] LABS: CREATININE 0.51 MG/DL (0.40-0.90); ETHANOL < 10 MG/DL (<10); TOTAL CARBON DIOXIDE 24.2 MMOL/L (24-32); eCRCL 110 ML/MIN; eGFR > 90 ML/MIN
[2024-11-11 09:11] LABS: PLATELET ESTIMATE NORMAL
[2024-11-11] MEDS: normal saline 1000ml 1,000 ML IV ONE (09:16)
[2024-11-11] MEDS: normal saline 1000ml 1,000 ML IV SCH (12:15)
[2024-11-11] MEDS ORDERED: potassium Cl 40MEQ/1/2NS 520ml 520 ML IV PRN (12:15)
[2024-11-11] MEDS ORDERED: potassium Cl 20 mEq SR tablet PO PRN ×2 (12:15)
[2024-11-11] MEDS: nicotine 14mg patch - 24hr TD SCH (12:15)
[2024-11-11] MEDS ORDERED: HYDROcodone/acetaminophen 5mg/325mg tablet PO PRN (12:15)
[2024-11-11] MEDS ORDERED: magnesium Cl slow-release 64mg tablet PO PRN (12:15)
--- NOTE | 2024-11-11 12:25 | HISTORY AND PHYSICAL-Residence ---
History & Physical Providers to CC Resident Creating Document: OXANA CARVAJAL RES ~ History of Present Illness Primary Medical Doctor: riky groves Reason for Admit\Complaint: ETOH withdrawal History of Present Illness This is a 44-year-old female with a history of hypertension, heavy alcohol use disorder, and prior episodes of severe alcohol withdrawal (with hallucinations and seizures), most recently in May of this year. She presents to the ER with symptoms of acute alcohol withdrawal that began yesterday, including severe nausea and vomiting, inability to tolerate oral intake, shaky hands, moist palms, panic like symptoms, pacing behavior, blurry vision, and severe generalized headache. She denies any current hallucination or tactile disturbances. She also denies any chest pain, shortness of breath, fever or chills. She also reports a history of chronic pain including fibromyalgia chronic lower back pain and states that her pain is not well managed. Her primary care physician has stopped prescribing pain medications. As a result, she has been self medicating with alcohol and currently consumes approximately one bottle of rum per day. She expresses a strong desire to quit drinking but acknowledges that alcohol has been her only effective means of controlling her chronic pain. She believes that prescription in the [facility] we will be essential for her to successfully stopped drinking. Her past medical history is also significant for migraines, pancreatitis due to gallstones, fibromyalgia, anxiety/depression and bipolar disorder. Allergies: Coded Allergies: oxytocin (Verified Allergy, Severe, 05/15/24) naproxen (Verified Allergy, Unknown, 05/15/24) Home Medications Home Medications Active Ondansetron Odt (Ondansetron HCl) 8 Mg Tab.rapdis 1 Tab PO Q6H 3 Days Omeprazole 20 Mg Tablet.dr 1 Tab PO DAILY 30 Days Ondansetron Odt (Ondansetron HCl) 4 Mg Tab.rapdis 1 Tablet PO Q6H PRN may substitute pherergan 25mg q6hrs #12 per formulary Past Medical History Past Medical History Anxiety, depression, bipolar disorder, pancreatitis, chronic pain issues, fibromyalgia Past Surgical History Surgical History Comment Three section, cholecystectomy Past Social History Social History Comment She lives with her fiance who is not drinking at all. She self medicates her chronic pain issues with alcohol; drinks one bottle of rum daily. She smokes half a pack of cigarettes daily. Denies using alcohol. Smoking: Cigarettes, Less than 1 pack/day Alcohol Use: Occasionally Drug Use: None Lives with: Family Lives In: Home Occupation: disabled ROS All Other Systems: Reviewed and Negative ROS As stated above in the HPI, otherwise all systems are reviewed and negative. Exam Vitals: Vital Signs Date Time Temp Pulse Resp B/P (MAP) Pulse Ox O2 Delivery O2 Flow Rate FiO2 11/11/24 10:11 103 19 153/87 (109) 98 11/11/24 08:03 98.8 0 General: Agitated, pacing back and forth, HEENT: Conjunctiva pink, Sclera clear, Mucus Membranes moist. Neck: Supple without masses and tenderness. Resp: Unlabored. Lungs clear to auscultation bilaterally. Heart: Regular Rate and rhythm, normal S1 and S2 without murmur, rub or gallop. Abdomen: Reducible umbilical hernia Extremities: Bilateral severe hand tremors Skin: Warm and Dry. Diagnostic Data Last Recorded Lab Results: 11/11/2482411/11/24 08 Advance Care Planning Advanced Care plannin - 30 Minutes Additional Plan Assessment and plan 44-year-old female with a history of alcohol use disorder, chronic pain, fibromyalgia, bipolar disorder, and previous complicated alcohol withdrawal, presenting with signs of acute alcohol withdrawal. CIWA IR score is 31, consistent with severe withdrawal. Patient also reports chronic pain for which she has been self medicating with the alcohol due to limited access to pain management. Severe Alcohol Withdrawa; CIWA-Ar Score 31 Autonomic symptoms (e.g., palpitations, sweating, tachycardia, elevated blood pressure) Anxiety, insomnia, vivid dreams, Tremor, hyperreflexia, Headaches, Anorexia,N/V Alcohol withdrawal protocol in place: Symptom-triggered regimen for ALINA - Ativan 2 mg IV as needed for CIWA-Ar >10 (parameters included in the order). Fixed-schedule regimen for ALINA: Ativan 2 mg every 6 hours scheduled Transition to P.O: Tomorrow, we will transition to Chlordiazepoxide 25 mg PO every 6 hours on day 1, every 8 hours on day 2, every12 hours on day 3, every 24 hours (at night) on days 4 and 5, then discontinue Continue thiamine and folic acid IV Discussed initiation of medication assisted treatment i.e. naltrexone/acamprosate after stabilization volunteer services supervisor consulted Chronic pain Self medication with the alcohol Uses alcohol to manage chronic pain, including fibromyalgia and back pain Discussed nonopioid pain management i.e. gabapentin duloxetine, and physical therapy Emphasized avoidance of opioids given substance use history Tobacco use disorder Smokes up half pack/day Nicotine replacement therapy Smoking cessation counseling provided Bipolar disorder Anxiety/depression Monitor closely for mood destabilization or depressive symptoms Outpatient psychiatric consultation Code status: Full code DVT prophylaxis: Darek Carvajal Internal Medicine Resident Date of Service: Nov 11, 2024 Billing Provider: CYRIL ALONSO MD,OXANA, RES Nov 11, 2024 12:25
[2024-11-11] MEDS: thiamine 100mg/ml 2ml inj. IV SCH (13:00)
[2024-11-11 13:25] LABS: LEUKOCYTE ESTERASE ,URINE NEGATIVE (Neg); NITRITES, URINE POSITIVE (Neg); OCCULT BLOOD,URINE LARGE (Neg)
[2024-11-11 13:26] LABS: URINE HCG NEGATIVE (NEG)
[2024-11-11 13:33] LABS: UA COLLECTION TYPE CLN CATCH MIDSTREAM
[2024-11-11 13:35] LABS: SQUAMOUS EPITHELIAL CELL,UR MODERATE /LPF (FEW)
[2024-11-11 13:36] LABS: MUCUS STRANDS MODERATE /LPF (Neg)
[2024-11-11 13:49] LABS: URINE AMPHETAMINE SCREEN NEGATIVE (Neg); URINE BARBITUATE SCREEN NEGATIVE (Neg); URINE BENZODIAZEPINES SCREEN NEGATIVE (Neg); URINE COCAINE SCREEN NEGATIVE (Neg); URINE METHADONE SCREEN NEGATIVE (Neg); URINE OPIATE SCREEN NEGATIVE (Neg); URINE PHENCYCLIDINE SCREEN NEGATIVE (Neg)
[2024-11-11 14:11] VITALS: BP 121/79; PULSE 87; RESP 18; O2SAT 98
[2024-11-11] MEDS ORDERED: AMLO2.5T5 PO (15:02)
[2024-11-11] MEDS ORDERED: ATOR40TA72 PO (15:02)
[2024-11-11] MEDS ORDERED: LISI40TA13 PO (15:02)
[2024-11-11] MEDS ORDERED: ONDA-245 PO (15:04)
[2024-11-12] MEDS ORDERED: folic acid 1mg/0.2ml inj IV SCH (08:00)
[2024-11-12] MEDS ORDERED: multivitamins, therapeutics tablet PO SCH (08:00)
[2024-11-12] MEDS ORDERED: enoxaparin 40mg/0.4ml syringe SUBCUT SCH (08:00)
--- NOTE | 2024-11-12 16:50 | DISCHARGE SUMMARY-Residence ---
Discharge Summary Providers to CC Resident Creating Document: OXANA JIMENESJOSE ~ Discharge Summary Admission Diagnosis: Alcohol withdrawal Hospital Course DATE OF ADMISSION: NOVEMBER 11, 2024 DATE OF DISCHARGE: NOVEMBER 11, 2024 Discharge Diagnosis\Comment: Heavy alcohol use disorder Severe Alcohol Withdrawal; CIWA-Ar Score 31 Chronic pain issues Tobacco use disorder Bipolar disorder Anxiety/depression Operations\Procedures: none Consultants: none Complications: none Condition on DC: Stable (LEFT AGAINST MEDICAL ADVICE ) Discharge Summary: LEFT AGAINST MEDICAL ADVICE History of present illness: This is a 44-year-old female with a history of hypertension, heavy alcohol use disorder, and prior episodes of severe alcohol withdrawal (with hallucinations and seizures), most recently in May of this year. She presents to the ER with symptoms of acute alcohol withdrawal that began yesterday, including severe nausea and vomiting, inability to tolerate oral intake, shaky hands, moist palms, panic like symptoms, pacing behavior, blurry vision, and severe generalized headache. She denies any current hallucination or tactile disturbances. She also denies any chest pain, shortness of breath, fever or chills. She also reports a history of chronic pain including fibromyalgia chronic lower back pain and states that her pain is not well managed. Her primary care physician has stopped prescribing pain medications. As a result, she has been self medicating with alcohol and currently consumes approximately one bottle of rum per day. She expresses a strong desire to quit drinking but acknowledges that alcohol has been her only effective means of controlling her chronic pain. She believes that prescription in the [facility] program we will be essential for her to successfully stopped drinking. Her past medical history is also significant for migraines, pancreatitis due to gallstones, fibromyalgia, anxiety/depression and bipolar disorder. Hospital course: Upon admission, she was placed on CIWA protocol (initial score 31) and admitted to telemetry for close monitoring. She received supportive care including IV fluids, thiamine, folate, and symptom triggered benzodiazepine therapy. Her alcohol withdrawal symptoms began to improve gradually. However, the patient remained focused on pain management and continued to request narcotic medications. Despite ongoing reassessment and nonopioid alternatives being offered, she remained dissatisfied with pain control. Before the completion of withdrawal treatment or discharge planning, the patient LEFT AGAINST MEDICAL ADVICE in the evening of the same day of admission. *Problems/Diagnosis: (1) Alcohol withdrawal syndrome Status: Acute (2) Alcohol dependence Status: Acute (3) Alcohol withdrawal Status: Acute (4) Chronic pain Status: Acute Total Time Spent on D/C: Up to 30 Minutes Date of Service: Nov 12, 2024 Billing Provider: CYRIL ALONSO MD,OXANA, RES Nov 12, 2024 16:45
== END 2024-11-11 17:07 | disposition left against medical advice (07) | DRG 894 ==
LOC: ER 08:00 → ED HOLD 11:32 → ORTHO 4S 14:14
PROVIDERS: ADMIT Internal Medicine; ATTEND Internal Medicine
DX: F10.239 Alcohol dependence with withdrawal, unspecified (principal); F31.9 Bipolar disorder, unspecified; G89.29 Other chronic pain; Z53.21 Procedure and treatment not carried out due to patient leaving prior to being seen by health care provider; M79.7 Fibromyalgia; F41.9 Anxiety disorder, unspecified; G43.909 Migraine, unspecified, not intractable, without status migrainosus; Z88.8 Allergy status to other drugs, medicaments and biological substances; Z86.73 Personal history of transient ischemic attack (TIA), and cerebral infarction without residual deficits; Z90.49 Acquired absence of other specified parts of digestive tract; Z98.891 History of uterine scar from previous surgery
CPT/HCPCS: 36415; 80053; 80305; 80320; 81001; 81002; 81025; 83036; 83690; 85008; 85025; 87081; 87088; 96361; 96374; 96375; 96376; 99285; G0378; J2060; J2560; J7030

== ENCOUNTER 2025-02-01 20:01 | Emergency (ER) | payer MEDICARE, MEDICAID ==
[~2025-02-01 20:01] MED LIST changes: +AMLO2.5T5 PO; +ATOR40TA72 PO; +LISI40TA20 PO; -OMEP20TA43 PO; -ONDA-243 PO; -ONDA-245 PO
== END 2025-02-01 21:30 | disposition left against medical advice (07) ==
LOC: ER 20:01
DX: N39.0 Urinary tract infection, site not specified (principal); Z53.21 Procedure and treatment not carried out due to patient leaving prior to being seen by health care provider; Z88.6 Allergy status to analgesic agent; Z88.8 Allergy status to other drugs, medicaments and biological substances

== ENCOUNTER 2025-04-04 17:06 | Emergency (ER) | payer MEDICARE, MEDICAID ==
[~2025-04-04] VITALS: Ht 157.5 cm; Wt 80.9 kg
--- NOTE | 2025-04-04 17:30 | Physician Documentation ---
History of Present Illness ~ General Chief Complaint: ETOH Stated Complaint: ABD PAIN/WHOLE BODY NUMBNESS Time Seen by MD: 17:26 OK to notify your PCP?: Yes Primary Medical Doctor: riky groves Source: patient, RN/MD, EMS, RN notes reviewed, old records Mode of Arrival: EMS Exam Limitations: no limitations History of Present Illness Initial Comments 44 year old female with history of alcoholism reports abdominal discomfort and withdrawal symptoms. Denies fever, N/V/D. has history of pancreatitis. PATIENT STATES SHE HAS FIBROMYALGIA CHRONIC PAIN SYNDROME SEIZURES HIATAL HERNIA IN NOBODY IS TREATING MY PAIN ALCOHOL SEEMS TO WORK WELL. PATIENT STATES DETOX DOES NOT HELP ME MUCH. PATIENT GAVE MULTIPLE REASONS TO WHY SHE CONTINUES TO DRINK DESPITE BEING JAUNDICED AND HAVING CLEARLY SIGNS OF LIVER FAILURE. PATIENT IS ASKING FOR PAIN MEDICATIONS WELL SEDATIVES. Medication Reconciliation Allergies: Coded Allergies: oxytocin (Verified Allergy, Severe, 04/04/25) naproxen (Verified Allergy, Unknown, 04/04/25) Scheduled Amlodipine Besylate (Amlodipine Besylate), 1 TAB PO DAILY, (Reported) Atorvastatin Calcium (Atorvastatin Calcium), 1 TAB PO DAILY, (Reported) Ferrous Sulfate (Ferrous Sulfate), 1 TAB PO Q48H, (Reported) Lisinopril* (Lisinopril*), 1 TAB PO DAILY, (Reported) Scheduled PRN Chlordiazepoxide Hcl (Librium), 1 CAP PO TID PRN for anxiety Past Medical History Past Medical History: CVA/TIA/Stroke, Headache, Migraine, Pancreatitis, Chronic Pain, Chronic Back Pain, Fibromyalgia, Anxiety, Bipolar, Depression Past Surgical History: cholecystectomy, , tubal ligation Alcohol Use: Abuse Drug Use: none Lives with: Family Lives In: Home Occupation: disabled Review of Systems All Other Systems at this time: Reviewed and Negative Physical Exam Physical Exam Vital Signs: RN Vital Signs have been reviewed: Yes, Temperature: 97.6, Source: Oral, Heart Rate: 123, Respiratory Rate: 16, BP: 160/99, Pulse Oximetry: 98, Weight: 80.900 Oxygen Flow Rate: 0 Physical Exam Gen: no distress HEENT: PERRL, EOMI ICTERIC SCLERA Pulm: no distress CTAB CV: tachycardic Abd: soft, distended, nontender MSK: no deformity EXTREMITY: 2+ PITTING EDEMA Skin: w/d/i Psych: unremarkable Progress Results/Orders Reviewed/noted all lab results: Yes Results/Orders Orders - JONI WEATHERS MD Ct Abdomen Pelvis (04/04/25 21:40) Completed Orders - JONI WEATHERS MD Ct Abdomen Pelvis (04/04/25 21:40) Magnesium Sulf-Water 2g/50ml (Magnesium (04/04/25 21:00) Hcg Serum Ql (04/04/25 21:02) Iohexol 300mg/Ml 100ml Inj. (Omnipaque-3 (04/04/25 21:10) Medications Received in ER Medications (Trade) Dose Ordered Sig/Emre Route PRN Reason Start Time Stop Time Status Last Admin Dose Admin (Valium tablet) 10 mg ONCE ONCE PO 04/04/25 17:30 04/04/25 17:31 DC 04/04/25 18:00 10 MG Sodium Chloride 1,000 ml @ 1,000 mls/hr ONCE ONCE IV 04/04/25 17:30 04/04/25 18:29 DC 04/04/25 17:59 1,000 MLS/HR (fentaNYL 0.05 MG/ML syringe) 100 mcg ONCE ONCE IV 04/04/25 17:30 04/04/25 17:31 DC 04/04/25 18:00 100 MCG (Dilaudid inj.) 1 mg ONCE ONCE IV 04/04/25 20:35 04/04/25 20:36 DC 04/04/25 20:50 1 MG (Librium capsule) 100 mg ONCE ONCE PO 04/04/25 20:35 04/04/25 20:36 DC 04/04/25 20:50 100 MG Magnesium Sulfate 50 ml @ 25 mls/hr ONCE ONCE IV 04/04/25 21:00 04/04/25 22:59 DC 04/04/25 21:14 25 MLS/HR Vital Signs 04/04/25 04/04/25 04/04/25 04/04/25 17:13 17:26 17:28 18:00 Temp 97.6 Pulse 125 123 Resp 18 16 16 16 B/P (MAP) 189/100 160/99 (119) Pulse Ox 99 98 O2 Flow Rate 0 0 04/04/25 04/04/25 04/04/25 04/04/25 18:00 18:09 19:21 19:25 Temp 97.6 Pulse 116 105 Resp 16 16 21 B/P (MAP) 153/101 (118) 145/86 (105) Pulse Ox 97 99 O2 Flow Rate 0 0 04/04/25 04/04/25 04/04/25 20:50 20:50 21:26 Temp 97.6 Pulse 115 Resp 22 12 18 B/P (MAP) 149/89 (109) Pulse Ox 95 O2 Flow Rate 0 Laboratory Tests Test 04/04/25 17:44 White Blood Count 9.2 Red Blood Count 2.99 L Hemoglobin 11.4 L Hematocrit 34.0 L Mean Corpuscular Volume 113.7 H Mean Corpuscular Hemoglobin 38.3 H Mean Corpuscular Hemoglobin Concent 33.7 Red Cell Distribution Width 20.2 H Platelet Count 316 Mean Platelet Volume 8.1 Neutrophils (%) (Auto) 72.9 Lymphocytes (%) (Auto) 16.8 L Monocytes (%) (Auto) 7.9 Eosinophils (%) (Auto) 1.1 Basophils (%) (Auto) 1.3 H Neutrophils # (Auto) 6.7 Lymphocytes # (Auto) 1.5 Monocytes # (Auto) 0.7 Eosinophils # (Auto) 0.1 Basophils # (Auto) 0.1 CBC Comment Platelet Estimate Normal Large Platelets Few Red Blood Cell Morphology Perf Polychromasia 2+ Basophilic Stippling Anisocytosis 3+ Macrocytosis 3+ Target Cells 2+ Sodium Level 136 Potassium Level 4.5 Chloride Level 99 Carbon Dioxide Level 29.5 Anion Gap 8 Blood Urea Nitrogen 5 L Creatinine 0.63 Estimated GFR/1.73 m2 > 90 BUN/Creatinine Ratio 7.9 L Glucose Level 131 H Calcium Level 7.7 L Magnesium Level 1.6 Total Bilirubin 5.8 H Aspartate Amino Transf (AST/SGOT) 228 H Alanine Aminotransferase (ALT/SGPT) 139 H Alkaline Phosphatase 240 H Total Protein 6.8 Albumin 2.2 L Globulin 4.6 H Albumin/Globulin Ratio 0.5 L Lipase 41 Human Chorionic Gonadotropin, Qual Negative Chemistry Comments Ethyl Alcohol Level < 10 Re-Evaluation Re-Evaluation : Re-Evaluation: Improved Progress Patient was seen and examined. Patient is given reassurance patient was requesting pain medications. She received Librium Valium saline as well as fentanyl she was complaining of additional pain and received magnesium for her borderline low magnesium levels Librium and Dilaudid. Patient is still complaining of generalized pain but appears completely comfortable. Laboratory work was obtained CBC WBC 9.2 hemoglobin hematocrit low at 11 and 34 with a MCV of 113. Tox screen was negative for alcohol chemistry showed some transaminitis with a bilirubin 5.8 AST 228 ALT 139 alk-phos 240. Patient's albumin is low at 2.2. Otherwise BUN creatinine ratio within normal limits and normal chemistry. Continuous cardiac cath lab technologist interpretation sinus tachycardia heart rate 110s, abnormal, my interpretation. Pulse oximetry monitor interpretation shows normal oxygenation at 95% room air, normal, my interpretation. EKG/XRAY/CT/US/VASC/MRI CT : Impression Exam: CT CT ABDOMEN PELVIS W/ IV CONTRAST History: ABD PAIN COMPARISON: CT CT ABDOMEN PELVIS on DOS: 11/26/24 Technique: Multidetector spiral CT of the abdomen and pelvis was performed from lung bases to pubic symphysis. Intravenous contrast was administered during this examination. Portal venous imaging was obtained. Axial, coronal and sagittal multiplanar reformats were performed by the technologist on a separate workstation. Radiation Dose : 1. Abdomen/Pelvis: CTDIvol 31.43 mGy, DLP 1523.82 mGy*cm. CONTRAST: Type of contrast: Omnipaque 300 Contrast injected: 100 ml Findings: Lung Bases: No acute or significant lung base finding. Normal heart size. No pl eural or pericardial effusion. Liver: Severe hepatic steatosis with hepatomegaly. Gallbladder and Biliary Tree: Gallbladder is surgically absent. Spleen: Unremarkable Pancreas: The pancreas is normal in appearance without focal lesions or abnormal enhancement. Adrenal Glands: Unremarkable Kidneys: No hydronephrosis. Bladder: Unremarkable Bowel: The stomach is grossly normal in appearance. Small bowel and colon are normal in caliber and distribution. The appendix is not visualized; however, no secondary findings of acute appendicitis identified. Ascites: Absent Lymphadenopathy: No mesenteric, retroperitoneal or periportal lymphadenopathy. Abdominal Wall and Mesentery: Unremarkable. Vasculature: The visualized abdominal aorta is normal in size and caliber. Abdominal and pelvic vessels demonstrate normal enhancement. Pelvic Organs: Unremarkable Musculoskeletal: No aggressive focal bony lesions, acute fractures or dislocation. IMPRESSION: No acute abdominal or pelvic finding. Severe hepatic steatosis with hepatomegaly. Radiation optimization: All CT scans at this facility use at least one of these dose optimization techniques: automated exposure control mA and/or kV adjustment per patient size (includes targeted exams where dose is matched to clinical indication) or iterative reconstruction. Medical Decision Making Additional information obtaine: old records, N/A Findings 44 year old female with abdominal pain and likely alcohol withdrawal given tachy, hypertensive, shaking. Valium, workup pending, will sign out to oncoming ER doc for disposition. Differential Diagnosis ddx = alcohol withdrawal, pancreatitis, dehydration, alcoholic ketoacidosis Departure Disposition: HOME / SELF CARE / HOMELESS Impression: Primary Impression: Liver failure Qualified Codes: K72.00 - Acute and subacute hepatic failure without coma Additional Impressions: Alcohol dependence Qualified Codes: F10.239 - Alcohol dependence with withdrawal, unspecified Chronic pain Qualified Codes: G89.4 - Chronic pain syndrome Jaundice Macrocytic anemia Transaminitis Additional Impression Text You will not have too many more chances in the future to stopped drinking you need to stopped drinking. Follow up with your primary care physician in need a liver specialist. Please go to a detox facility if you need that as well Condition: Stable Discharge Instructions: Liver Failure Referrals: NO PRIMARY CARE PROVIDER (PCP) Prescriptions Chlordiazepoxide Hcl (Librium) 25 Mg Capsule 1 CAP PO TID PRN for anxiety for 5 Days, #15 CAP 0 Refills Prov: JONI WEATHERS MD 04/04/25 Education Educated: Patient Educated regarding: diagnosis, need for follow up, other Signature Scribe Signature: . Attestation: The note accurately reflects work and decisions made by me.Joni Weathers MD 04/04/25 21:30 FAROOQ CALVO MD Apr 04, 2025 17:30 JONI WEATHERS MD Apr 04, 2025 21:29
[2025-04-04] MEDS ORDERED: FERR325T7 PO (17:42)
[2025-04-04] MEDS: normal saline 1000ml 1,000 ML IV ONE (17:59)
[2025-04-04 18:00] LABS: MEAN PLATELET VOLUME 8.1 FL (7.4-10.4); RED CELL DISTRIBUTION WIDTH 20.2 % (11.5-14.5)
[2025-04-04] MEDS: fentaNYL/PF 50MCG/1 ML 2ML syringe IV ONE (18:00)
[2025-04-04 18:09] LABS: CREATININE 0.63 MG/DL (0.40-0.90); TOTAL CARBON DIOXIDE 29.5 MMOL/L (24-32); eCRCL 91 ML/MIN; eGFR > 90 ML/MIN
[2025-04-04 18:28] LABS: PLATELET ESTIMATE NORMAL
[2025-04-04 18:30] LABS: LARGE PLATELETS FEW
[2025-04-04 18:31] LABS: ETHANOL < 10 MG/DL (<10)
[2025-04-04] MEDS ORDERED: iohexol 300mg/ml 100ml inj. ONE (21:10)
[2025-04-04] MEDS: magnesium sulf-water 2g/50mL 50 ML IV ONE (21:14)
[2025-04-04 21:21] LABS: HCG SERUM QL NEGATIVE
--- NOTE | 2025-04-04 22:03 | RADIOLOGY REPORT ---
Exam: CT CT ABDOMEN PELVIS W/ IV CONTRAST History: ABD PAIN COMPARISON: CT CT ABDOMEN PELVIS on DOS: 11/26/24 Technique: Multidetector spiral CT of the abdomen and pelvis was performed from lung bases to pubic symphysis. Intravenous contrast was administered during this examination. Portal venous imaging was obtained. Axial, coronal and sagittal multiplanar reformats were performed by the technologist on a separate workstation. Radiation Dose : 1. Abdomen/Pelvis: CTDIvol 31.43 mGy, DLP 1523.82 mGy*cm. CONTRAST: Type of contrast: Omnipaque 300 Contrast injected: 100 ml Findings: Lung Bases: No acute or significant lung base finding. Normal heart size. No pleural or pericardial effusion. Liver: Severe hepatic steatosis with hepatomegaly. Gallbladder and Biliary Tree: Gallbladder is surgically absent. Spleen: Unremarkable Pancreas: The pancreas is normal in appearance without focal lesions or abnormal enhancement. Adrenal Glands: Unremarkable Kidneys: No hydronephrosis. Bladder: Unremarkable Bowel: The stomach is grossly normal in appearance. Small bowel and colon are normal in caliber and distribution. The appendix is not visualized; however, no secondary findings of acute appendicitis identified. Ascites: Absent Lymphadenopathy: No mesenteric, retroperitoneal or periportal lymphadenopathy. Abdominal Wall and Mesentery: Unremarkable. Vasculature: The visualized abdominal aorta is normal in size and caliber. Abdominal and pelvic vessels demonstrate normal enhancement. Pelvic Organs: Unremarkable Musculoskeletal: No aggressive focal bony lesions, acute fractures or dislocation. IMPRESSION: No acute abdominal or pelvic finding. Severe hepatic steatosis with hepatomegaly. Radiation optimization: All CT scans at this facility use at least one of these dose optimization techniques: automated exposure control mA and/or kV adjustment per patient size (includes targeted exams where dose is matched to clinical indication) or iterative reconstruction.
[2025-04-04] MEDS ORDERED: CHLO25CA10 PO (22:41)
[2025-04-04 23:36] VITALS: BP 155/90; PULSE 110; RESP 16; TEMP 97.6; O2SAT 97
[2025-04-07] MEDS ORDERED: GADOTERATE MEGLUMINE 7.5 MMOL/15 ML VIAL IV ONE (18:27)
== END 2025-04-05 00:08 | disposition home or self-care (01) ==
LOC: ER 17:07
DX: K72.90 Hepatic failure, unspecified without coma (principal); D53.9 Nutritional anemia, unspecified; G89.4 Chronic pain syndrome; F10.20 Alcohol dependence, uncomplicated; R74.01 Elevation of levels of liver transaminase levels; F31.9 Bipolar disorder, unspecified; F41.9 Anxiety disorder, unspecified; M79.7 Fibromyalgia; Z86.73 Personal history of transient ischemic attack (TIA), and cerebral infarction without residual deficits; Z88.6 Allergy status to analgesic agent; Z88.8 Allergy status to other drugs, medicaments and biological substances; Z90.49 Acquired absence of other specified parts of digestive tract; Z98.51 Tubal ligation status; Y90.9 Presence of alcohol in blood, level not specified
CPT/HCPCS: 36415; 74177; 80053; 83690; 83735; 84703; 85008; 85025; 96361; 96365; 96366; 96375; 99285; G0480; J1171; J3010; J7030; Q9967; 80320

== ENCOUNTER 2025-04-08 21:22 | Emergency (ER) | payer MEDICARE, MEDICAID ==
[~2025-04-08] VITALS: Ht 157.5 cm; Wt 88.0 kg
[~2025-04-08 21:22] MED LIST changes: +CHLO25CA10 PO; +FERR325T7 PO
[2025-04-08 21:30] VITALS: BP 152/109; PULSE 112; O2SAT 99
--- NOTE | 2025-04-08 23:37 | Physician Documentation ---
History of Present Illness ~ General Chief Complaint: See Chief Complaint Stated Complaint: SEE CHIEF COMPLAINT Time Seen by MD: 23:33 Primary Medical Doctor: riky groves History of Present Illness Initial Comments Patient presents to the emergency room for evaluation of chronic body pain. She was seen here recently for similar complaint. She reports she has chronic pain related to fibromyalgia that has well as anxiety. She is established with a primary care provider who she feels isn't addressing her chronic pain appropriately. She states she has been prescribed antidepressants before but did not take them because she is not depressed. Regarding aerobic activity she does not do any aerobic activity but states she stays moving all day long. She is suffering from liver failure upon her last visit. Since that time she has completely stopped drinking. She states she was drinking for her chronic pain and now that she is not drinking she takes some ibuprofen although she says she is allergic to naproxen with limited benefit. Reports she has had gabapentin before but did not like the way it made her feel and she is having significant side effects. Medication Reconciliation Allergies: Coded Allergies: oxytocin (Verified Allergy, Severe, 04/04/25) naproxen (Verified Allergy, Unknown, 04/04/25) Scheduled Amlodipine Besylate (Amlodipine Besylate), 1 TAB PO DAILY, (Reported) Atorvastatin Calcium (Atorvastatin Calcium), 1 TAB PO DAILY, (Reported) Ferrous Sulfate (Ferrous Sulfate), 1 TAB PO Q48H, (Reported) Lisinopril* (Lisinopril*), 1 TAB PO DAILY, (Reported) Scheduled PRN Chlordiazepoxide Hcl (Librium), 1 CAP PO TID PRN for anxiety Past Medical History Past Medical History: CVA/TIA/Stroke, Headache, Migraine, Pancreatitis, Chronic Pain, Chronic Back Pain, Fibromyalgia, Anxiety, Bipolar, Depression Past Surgical History: cholecystectomy, , tubal ligation Alcohol Use: Abuse Drug Use: none Lives with: Family Lives In: Home Occupation: disabled Review of Systems ROS All review of systems negative except as per HPI Physical Exam Physical Exam Vital Signs: Temperature: 98.6, Source: Temporal, Heart Rate: 112, Respiratory Rate: 17, BP: 152/109, Pulse Oximetry: 99, Weight: 88.000 Physical Exam General: Patient is awake, alert, oriented x4 in no acute distress Head: Normocephalic and atraumatic. Eyes: Conjunctival normal. EOMI. PERRL. ENT: Mucous membranes moist. Neck: Supple, trachea is midline. Chest: Clear to auscultation bilaterally without rales, rhonchi, or wheezes. There is no accessory muscle use or retractions. Cardiac: Tachycardic and regular without murmurs, gallops, or rubs. Abd: Soft, distended with positive fluid wave. Neuro: Cranial nerves II-XII grossly intact. No focal neuro deficits. Patient ambulating without difficulty. Progress Results/Orders Results/Orders Vital Signs 04/08/25 21:30 Temp 98.6 Pulse 112 Resp 17 B/P (MAP) 152/109 Pulse Ox 99 Medical Decision Making Additional information obtaine: old records Findings Patient presents to the emergency room for evaluation of chronic pain as per HPI as well as anxiety. Differentials include but are not limited to fibromyalgia, malingering, anxiety, rhabdomyolysis. Given patient's history and no new symptoms I do not feel patient requires emergent labs. I acknowledged that has patient has been liver failure upon last visit and I expect her liver to improve however I do not feel an emergent need to check her liver enzymes. She is here for acute on chronic pain. We will treat her as such with instructions to follow up with her doctor. I will give her a small amount of Lyrica to tide her over Differential Diagnosis k Departure Disposition: HOME / SELF CARE / HOMELESS Impression: Primary Impression: Chronic pain Condition: Stable Discharge Instructions: Chronic Pain, Adult Additional Instructions: Follow up with your doctor for pain management. Consider prescription for Lyrica that has well as antidepressant and encourage aerobic activity in addition to your daily activity. He also recommended therapist. Capsaicin cream as discussed. Referrals: NO PRIMARY CARE PROVIDER (PCP) Prescriptions Pregabalin* (Lyrica*) 25 Mg Capsule 1 CAP PO BID, #30 CAP Prov: EMERSON MERCEDES MD 04/09/25 Signature Scribe Signature: No scribe Attestation: The note accurately reflects work and decisions made by me.Emerson Mercedes MD 04/09/25 00:07 EMERSON MERCEDES MD Apr 08, 2025 23:37
[2025-04-09] MEDS ORDERED: LYR25C PO (00:07)
[2025-04-09 00:20] VITALS: TEMP 98.6
[2025-04-09 00:33] VITALS: RESP 17
[2025-04-09] MEDS: morphine 4 MG/ML inj SYRINge IM ONE (00:33)
== END 2025-04-09 00:40 | disposition home or self-care (01) ==
LOC: ER 21:23
DX: G89.29 Other chronic pain (principal); F31.9 Bipolar disorder, unspecified; M79.7 Fibromyalgia; F41.9 Anxiety disorder, unspecified; G43.909 Migraine, unspecified, not intractable, without status migrainosus; F10.10 Alcohol abuse, uncomplicated; Z90.49 Acquired absence of other specified parts of digestive tract; Z98.51 Tubal ligation status; Z88.8 Allergy status to other drugs, medicaments and biological substances; Z87.19 Personal history of other diseases of the digestive system; Z86.73 Personal history of transient ischemic attack (TIA), and cerebral infarction without residual deficits; Y90.9 Presence of alcohol in blood, level not specified
CPT/HCPCS: 96372; 99283; J2270

== ENCOUNTER 2025-04-12 11:52 | Emergency (ER) | payer MEDICARE, MEDICAID ==
[~2025-04-12] VITALS: Ht 157.5 cm; Wt 85.8 kg
[~2025-04-12 11:52] MED LIST changes: +LYR25C PO
[2025-04-12 11:54] VITALS: TEMP 98.5
[2025-04-12 12:57] LABS: MEAN PLATELET VOLUME 8.6 FL (7.4-10.4); RED CELL DISTRIBUTION WIDTH 19.1 % (11.5-14.5)
[2025-04-12 13:11] LABS: CREATININE 0.43 MG/DL (0.40-0.90); TOTAL CARBON DIOXIDE 28.0 MMOL/L (24-32); eCRCL 133 ML/MIN; eGFR > 90 ML/MIN
[2025-04-12 13:15] LABS: LEUKOCYTE ESTERASE ,URINE MODERATE (Neg); NITRITES, URINE NEGATIVE (Neg); OCCULT BLOOD,URINE MODERATE (Neg)
[2025-04-12 13:16] LABS: URINE HCG NEGATIVE (NEG)
[2025-04-12 13:25] LABS: UA COLLECTION TYPE CLN CATCH MIDSTREAM
--- NOTE | 2025-04-12 13:26 | Physician Documentation ---
History of Present Illness Chief Complaint: Vomiting Stated Complaint: VOMITING/BODY PAIN Time Seen by MD: 13:25 Primary Medical Doctor: riky groves HPI 44-year-old female who presents to the emergency department for whole-body pain and swelling in the extremities. She reports a history of alcoholism, admits that she has a long history of this but has been clean for the last few weeks. She denies any fevers or chills, but does endorse some shortness of breath. She reports that the only medications she is currently taking are milk thistle, pancreatin, OTC potassium gluconate, OTC iron, and nexium. She was also previously described lyrica and librium. Reports that the lyrica caused vomiting and did not help her pain. Reports that the librium was to help her quit drinking but she has only used a couple out of the bottle. Medication Reconciliation Allergies: Coded Allergies: oxytocin (Verified Allergy, Severe, 04/04/25) naproxen (Verified Allergy, Unknown, 04/04/25) Scheduled Amlodipine Besylate (Amlodipine Besylate), 1 TAB PO DAILY, (Reported) Atorvastatin Calcium (Atorvastatin Calcium), 1 TAB PO DAILY, (Reported) Ferrous Sulfate (Ferrous Sulfate), 1 TAB PO Q48H, (Reported) Furosemide 40 MG (Lasix), 1 TAB PO DAILY Lisinopril* (Lisinopril*), 1 TAB PO DAILY, (Reported) Pregabalin* (Lyrica*), 1 CAP PO BID Spironolactone (Aldactone), 1 TAB PO DAILY Scheduled PRN Chlordiazepoxide Hcl (Librium), 1 CAP PO TID PRN for anxiety Oxycodone Hcl (Oxycodone Hcl), 1 TAB PO Q12H PRN PRN for pain Past Medical History Past Medical History: CVA/TIA/Stroke, Headache, Migraine, Pancreatitis, Chronic Pain, Chronic Back Pain, Fibromyalgia, Anxiety, Bipolar, Depression Past Surgical History: cholecystectomy, , tubal ligation Alcohol Use: Abuse Drug Use: none Lives with: Family Lives In: Home Occupation: disabled Review of Systems ROS As stated above in the HPI, otherwise all systems are reviewed and negative. Physical Exam Vital Signs: Temperature: 98.5, Source: Oral, Heart Rate: 122, Respiratory Rate: 16, BP: 148/91, Pulse Oximetry: 95, Weight: 85.800 Oxygen Flow Rate: 0 Physical Exam General: Alert, no apparent distress. HEENT: PERRL, EOMI, no injection, moist mucous membranes. Neck: Full range of motion. Respiratory: Lungs clear, no respiratory distress. Chest: No accessory muscle use. Cardiovascular: Regular rate and rhythm, no murmurs. Gastrointestinal: Soft, nontender, nondistended. Bowels sounds present. Extremities: Normal range of motion, no deformity. Neurologic: Oriented x4. Psychiatric: Normal mood and affect. Skin: Normal color, warm and dry. 2-3+ edema BLE. Progress Results/Orders Results/Orders Orders - LITTLE ALVAREZ CLINICAL DATA MANAGEMENT DIRECTOR Ultrasound Of Abdomen (04/12/25 13:16) PBNP (04/12/25 13:22) Ammonia (04/12/25 13:22) Ethanol (04/12/25 13:25) Vital Signs 04/12/25 11:54 Temp 98.5 Pulse 122 Resp 16 B/P (MAP) 148/91 Pulse Ox 95 O2 Flow Rate 0 Laboratory Tests Test 04/12/25 12:25 04/12/25 12:33 04/12/25 13:01 White Blood Count 10.6 Red Blood Count 3.01 L Hemoglobin 11.1 L Hematocrit 34.8 L Mean Corpuscular Volume 115.7 H Mean Corpuscular Hemoglobin 36.9 H Mean Corpuscular Hemoglobin Concent 31.9 L Red Cell Distribution Width 19.1 H Platelet Count 352 Mean Platelet Volume 8.6 Neutrophils (%) (Auto) 64.5 Lymphocytes (%) (Auto) 20.9 L Monocytes (%) (Auto) 11.1 Eosinophils (%) (Auto) 2.4 Basophils (%) (Auto) 1.1 H Neutrophils # (Auto) 6.8 Lymphocytes # (Auto) 2.2 Monocytes # (Auto) 1.2 H Eosinophils # (Auto) 0.3 Basophils # (Auto) 0.1 CBC Comment Sodium Level 135 Potassium Level 4.5 Chloride Level 103 Carbon Dioxide Level 28.0 Anion Gap 4 L Blood Urea Nitrogen 7 Creatinine 0.43 Estimated GFR/1.73 m2 > 90 BUN/Creatinine Ratio 16.3 Glucose Level 104 Calcium Level 8.2 L Total Bilirubin 3.5 H Aspartate Amino Transf (AST/SGOT) 138 H Alanine Aminotransferase (ALT/SGPT) 85 H Alkaline Phosphatase 212 H Total Protein 7.2 Albumin 2.3 L Globulin 4.9 H Albumin/Globulin Ratio 0.5 L Lipase 96 H Chemistry Comments Urine Specimen Description Cln catch midstream Urine Color Yellow Urine Clarity Cloudy Urine pH 6.5 Urine Specific [place] 1.010 Urine Protein Negative Urine Glucose (UA) Negative Urine Ketones Negative Urine Occult Blood Moderate H Urine Nitrite Negative Urine Bilirubin Small Urine Urobilinogen 0.2 Urine Leukocyte Esterase Moderate H Volume Urine Centrifuged 10 ml Urine HCG, Qualitative Negative Urine Comment EKG/XRAY/CT/US/VASC/MRI Ultrasound : Impression [facility] [address] [facility] [address] ULTRASOUND Patient: BRITTANY STEELE Medical Record: [id number] [facility] : 1980, Age: 44 Sex: Female Location: ER Patient Status: [facility] ER Service Date/Time: 04/12/251315 Ordering Physician: LITTLE ALVAREZ CLINICAL DATA MANAGEMENT DIRECTOR Exam: ULTRASOUND OF ABDOMEN CLINICAL INFORMATION: Elevated transaminases. TECHNIQUE: Grayscale sonographic imaging of the right upper quadrant of the abdomen was performed, assisted by color Doppler technique. COMPARISON: CT CT ABDOMEN PELVIS W/ IV CONTRAST on DOS: 04/04/25, CT CT ABDOMEN PELVIS on DOS: 11/26/24 FINDINGS: The gallbladder is surgically absent. The common bile duct measures 5.8 mm in diameter, within normal limits. The liver is enlarged, measuring up to 19.4 cm in craniocaudal dimension. Increased echogenicity of the liver consistent with fatty infiltration. The pancreas is obscured by bowel gas. The right kidney measures 11.6 cm. There is no hydronephrosis. Grossly unremarkable cortical echogenicity and cortical thickness, although limited evaluation of the right kidney due to suboptimal sonographic penetration of the liver. IMPRESSION: 1. Hepatomegaly and hepatic steatosis. 2. Cholecystectomy. No biliary ductal dilatation. Electronically Signed by:PHIL GRANADO DO Date & Time: 04/12/251450 Dictated by: PHIL GRANADO DO Dictation date and time: 04/12/251450 Primary Care Provider: NO PRIMARY CARE PROVIDER cc: LITTLE ALVAREZ CLINICAL DATA MANAGEMENT DIRECTOR ~ Medical Decision Making Additional information obtaine: old records Findings Reviewed previous hospital records. Differential Dx:Considerations: Other Additional Comments Most Likely Diagnoses Decompensated alcohol-associated cirrhosis with ascites: The combination of jaundice, abdominal distention, peripheral edema, elevated bilirubin (3.5), low albumin (2.3), and AST:ALT ratio >2 (138:85 = 1.6) in a patient with chronic alcohol use strongly suggests advanced alcohol-associated liver disease (ALD) with decompensation. Elevated bilirubin or prothrombin time and decreased albumin or platelet count suggest advanced ALD. Cirrhosis is often diagnosed at decompensation, defined by occurrence of liver-related events such as ascites, jaundice, gastrointestinal bleeding, and hepatic encephalopathy. The macrocytic anemia (MCV 115.7) is characteristic of chronic alcohol use and is significantly associated with folate deficiency. Portal hypertension from cirrhosis causes ascites through increased hepatic sinusoidal pressure, and disrupted portal flow leads to decreased cardiac return, increased plasma renin activity, increased renal-tubular affinity for sodium, and peripheral volume expansion. Acute alcoholic hepatitis superimposed on cirrhosis: The recent alcohol cessation (2 weeks sober after chronic use), new onset or worsening jaundice, elevated AST and ALT (though not dramatically elevated), and constitutional symptoms suggest acute alcoholic hepatitis (AH). Among patients with suspected heavy alcohol use and new onset or worsening jaundice, clinicians should have a high suspicion for AH given its high short-term mortality. The AST:ALT ratio >2 with both values <500 is characteristic of alcoholic hepatitis. Physical examination signs may overlap with ALD cirrhosis reflecting the presence of portal hypertension and its complications, and the inflammation and steatosis of AH may promote de dalton onset of portal hypertension in patients with minimal pre-existing liver disease and those with previously compensated cirrhosis. Alcohol-induced cardiomyopathy with congestive heart failure: The markedly elevated BNP (3977), dyspnea, significant peripheral edema (2-3+), and abdominal distention in a patient with chronic alcohol use strongly suggest alcoholic cardiomyopathy (ACM) with heart failure. Long-term excessive alcohol use is associated with the development of a dilated left ventricle and, in advanced stages, heart failure with reduced left ventricular ejection fraction. The exact amount and duration of alcohol consumption associated with the development of ACM remain unknown, but data suggest that consuming approximately 7 to 15 standard drinks/day over a 5- to 15-year period is associated with adverse changes in systolic or diastolic ventricular function. The BNP elevation indicates significant cardiac dysfunction, and the peripheral edema and ascites could represent both hepatic and cardiac causes of fluid overload. Combined hepatic and cardiac dysfunction (cardiohepatic syndrome): The constellation of findingselevated BNP, ascites, peripheral edema, jaundice, low albumin, and elevated liver enzymessuggests the possibility of both liver and heart failure coexisting. Chronic liver injury causes hepatocyte loss and reduces the liver's capacity for metabolic activity including protein synthesis, and disrupted portal flow causes decreased cardiac return and decreased central blood volume, which can further compromise cardiac function in the setting of underlying cardiomyopathy. 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 Folate deficiency is a relatively frequent finding in contemporary, middle-aged patients with alcohol use disorder, and macrocytosis is significantly associated with the deficiency. Macrocytosis (MCV>100 fL) was present in 34% of patients seeking treatment for alcohol use disorder, and 23% had serum folate deficiency. The elevated MCH (36.9) further supports macrocytic anemia. Most Important Not to Miss Diagnoses Spontaneous bacterial peritonitis (SBP): In any patient with cirrhosis and ascites presenting with new symptoms or clinical deterioration, SBP must be excluded. Up to one-third of patients with spontaneous infections may be entirely asymptomatic or present with only encephalopathy and/or acute kidney injury. A diagnostic paracentesis should be performed as soon as a patient with cirrhosis and ascites is hospitalized emergently for any reason, even in the absence of symptoms suggestive of infection, or whenever a patient develops signs suggestive of infection. The diagnosis is established with ascitic fluid absolute neutrophil count greater than 250/mm. Bedside inoculation of at least 10 mL of the ascitic sample into blood culture bottles increases the sensitivity of the culture to >90%. Obtain simultaneous blood cultures to increase the possibility of isolating a causative organism. Because a delay in instituting therapy can lead to increased mortality, empiric antibiotic therapy should be started immediately after diagnostic paracentesis if SBP is suspected, without waiting for culture results. Hepatorenal syndrome (HRS): The combination of cirrhosis, ascites, and potential acute kidney injury (suggested by widespread pain, dyspnea, and elevated BNP which may reflect volume overload from renal dysfunction) raises concern for hepatorenal syndrome. Among hospitalized patients with cirrhosis, up to 50% develop acute kidney injury (SANA). Hepatorenal syndrome-associated SANA should be considered in patients with cirrhosis, ascites, and SANA where intravascular volume status was deemed adequate and where there was no alternative explanation for SANA. Check serum creatinine and compare to baseline values to assess for SANA using standard criteria (increase ?0.3 mg/dL within 48 hours or ?1.5 times baseline within 7 days). Evaluate for alternative causes of SANA including hypovolemia, nephrotoxic medications, urinary obstruction, and infection. If HRS is diagnosed, terlipressin is considered the first-line agent in combination with 20-25% albumin, though norepinephrine has shown comparative effects. Pulmonary embolism: The acute dyspnea without chest pain in a patient with multiple risk factors for venous thromboembolism (immobility from widespread pain, possible hypercoagulable state from liver disease) requires exclusion of pulmonary embolism. While the elevated BNP suggests heart failure, PE can also cause right ventricular strain and BNP elevation. Obtain a D-dimer if clinical probability is low to intermediate; if elevated or if clinical suspicion is moderate to high, proceed directly to CT pulmonary angiography. Check oxygen saturation and arterial blood gas if hypoxemia is suspected. ECG may show signs of right heart strain (S1Q3T3 pattern, right bundle branch block, or T-wave inversions in precordial leads) though these are neither sensitive nor specific. Acute myocardial infarction or acute coronary syndrome: The dyspnea, widespread pain, and markedly elevated BNP could represent acute cardiac ischemia, particularly given the patient's history of chronic alcohol use which is a cardiovascular risk factor. Obtain a 12-lead ECG immediately to evaluate for ST- segment elevation or other ischemic changes. Measure serial high-sensitivity cardiac troponins (at presentation and 1-3 hours later depending on the assay). BNP elevation can occur with both heart failure and acute coronary syndrome, so troponin measurement is essential to distinguish these entities. Variceal hemorrhage: Patients with decompensated cirrhosis and portal hypertension are at high risk for esophageal or gastric variceal bleeding. While the patient does not report black or bloody stools, occult bleeding could contribute to anemia and hemodynamic instability. Assess for signs of gastrointestinal bleeding including melena, hematemesis, or hemoccult-positive stool. Check hemoglobin serially to assess for ongoing blood loss. If variceal hemorrhage is suspected, the patient requires urgent upper endoscopy, octreotide infusion, and prophylactic antibiotics. Departure Time of Disposition: 17:42 Disposition: 01 HOME / SELF CARE / HOMELESS Impression: Primary Impression: Transaminitis Additional Impressions: Liver failure Chronic pain syndrome Discharge Instructions: Chronic Pain, Adult, Cirrhosis Additional Instructions: Please do NOT take milk thistle, pancreatin, and over the counter potassium. Also, do not take [id number] "water pills," These are not indicated for your liver issues and may even be dangerous. You are being sent with a few oxycodone. Opioids should not be routinely used for chronic pain and can be dangerous in people with liver failure. See below for how much acetaminophen/Tylenol and Ibuprofen you can safely take each day with your current issues. Start taking the aldactone 50 mg daily and the furosemide 40 mg daily. These are best taken in the morning as they will cause you to urinate out the excess fluid in your body. Please see your primary care for lab recheck in one week to ensure that your potassium levels are stable on these new medications. Referrals to request from your primary care: [facility] (after having a full autoimmune panel lab workup) civil design specialist Liver Specialist ### Liver Disease Discharge Instructions Your Diagnosis You have been diagnosed with advanced liver disease (cirrhosis) related to alcohol use. Your liver has been damaged over time, and this has caused serious complications including: - Jaundice (yellowing of your skin and eyes due to buildup of bilirubin) - Ascites (fluid buildup in your abdomen) - Peripheral edema (swelling in your legs and feet) - Heart problems (your heart is not pumping as well as it should, shown by your elevated BNP level) Your liver is responsible for many important jobs in your body, including filtering toxins, making proteins, and helping your blood clot properly. When your liver is damaged, it cannot do these jobs well, which causes the symptoms you are experiencing. --- The Most Important Thing: Stop Drinking Alcohol Completely You must not drink any alcohol. Even small amounts of alcohol will continue to damage your liver and can make your condition much worse or even life- threatening.[] Studies show that patients with alcohol-related liver disease who stop drinking completely can sometimes see their liver function improve over time.[][1][2][3] Stopping alcohol can be very difficult. If you need help: - Talk to your primary care doctor about alcohol treatment programs - Ask about medications that can help reduce alcohol cravings - Consider joining a support group like Alcoholics Anonymous --- Follow-Up Appointments You Must Make 1. See your primary care doctor within 1-2 weeks Your primary care doctor needs to: - Check how you are recovering - Review your medications - Monitor your liver function with blood tests - Help coordinate your care with specialists 2. Request a referral to a pitch filler (liver specialist) A pitch filler is a doctor who specializes in liver diseases. You need to see a pitch filler because your liver disease is advanced and requires specialized care. The pitch filler will: - Perform additional tests to assess your liver - Develop a long-term treatment plan - Monitor for complications like liver cancer - Determine if you might need a liver transplant in the future[][1][3] Do not delay making these appointments. Your liver disease is serious and requires close medical follow-up. --- Your Medications and Pain Management Acetaminophen (Tylenol) - SAFE at Low Doses - You may take acetaminophen up to 2,000 mg (2 grams) per day total[][4][5][3][1][6] - This is typically 500 mg every 6 hours as needed for pain[][5] - Acetaminophen is the safest pain medication for people with liver disease when used at this reduced dose[][4][5][3][1] IMPORTANT WARNINGS about Acetaminophen: - Do NOT take more than 2,000 mg (2 grams) in 24 hours - Many [id number] cold medicines, flu medicines, and prescription pain pills contain acetaminophen (also called "APAP") - Always read medicine labels and add up all the acetaminophen you are taking from different products - Taking too much acetaminophen can cause severe liver damage, liver failure, and , especially in people who already have liver disease[][5][7] - Do NOT drink alcohol while taking acetaminophen, as this greatly increases the risk of liver damage[][3] Ibuprofen (Advil, Motrin) - Use ONLY at Low Doses and for Short Periods Because your platelet count is currently normal, you may use low-dose ibuprofen occasionally for pain:[][4][5] - Safe dose: 200-400 mg every 6-8 hours as needed - Maximum daily dose: 1,200 mg per day - Use for the shortest time possible (ideally no more than 5 days)[][4] IMPORTANT WARNINGS about Ibuprofen and Other NSAIDs: Ibuprofen and other nonsteroidal anti-inflammatory drugs (NSAIDs) like naproxen (Aleve), aspirin (except baby aspirin for heart protection), and others can be very dangerous for people with liver disease:[][4][5][3][1][6] - They can cause kidney failure in people with cirrhosis[][4][5][3][1] - They can cause bleeding from your stomach or esophagus[][4][5][3] - They can make fluid buildup worse (more swelling and ascites)[][4][5] - They can interfere with your water pills (diuretics)[][5] You should avoid regular-dose or long-term use of NSAIDs. Only use the low doses listed above for occasional pain relief.[][4][5][3][1] Other Pain Medications - Topical treatments like lidocaine patches or creams may be safe options - discuss with your doctor[][5][3] - Avoid opioid pain medications (like hydrocodone, oxycodone, morphine) when possible, as they can cause confusion and worsen liver problems[][5][3][8] Take All Your Prescribed Medications Exactly as Directed - Do not stop taking any medications without talking to your doctor first - If you have trouble affording your medications, tell your doctor - there may be assistance programs available - Keep a list of all your medications and bring it to every doctor appointment --- Warning Signs: When to Go to the Emergency Department Immediately Call 911 or go to the emergency department right away if you experience any of these symptoms:[][1][3][2][9] Brain and Mental Changes: - Confusion, disorientation, or difficulty thinking clearly - Extreme sleepiness or difficulty waking up - Personality changes or unusual behavior - Slurred speech or difficulty speaking These symptoms could mean you are developing hepatic encephalopathy, a serious complication where toxins build up in your brain because your liver cannot filter them properly. Bleeding: - Vomiting blood or material that looks like coffee grounds - Black, tarry stools or bright red blood in your stools - Unusual bruising or bleeding that won't stop These symptoms could mean you are bleeding from varices (enlarged blood vessels in your esophagus or stomach) or have other serious bleeding problems. Kidney and Urination Problems: - Urinating much less than normal or not at all - Very dark urine - Severe swelling that gets much worse quickly These symptoms could mean your kidneys are failing, which is a serious complication of liver disease. Infection: - Fever (temperature over 100.4F or 38C) - Chills or shaking - New or worsening abdominal pain - Worsening confusion These symptoms could mean you have an infection, including a serious infection in the fluid in your abdomen called spontaneous bacterial peritonitis. Breathing Problems: - Severe shortness of breath - Difficulty breathing even at rest - Chest pain Severe Abdominal Symptoms: - Severe abdominal pain that is new or much worse - Abdomen that becomes very hard or tender - Rapidly increasing abdominal swelling Jaundice Getting Worse: - Your skin or eyes becoming more yellow - Very dark urine (tea-colore ### References 1. Liver Cirrhosis. Michelle P, Enedina A, Kerri HarpG, et al. Lancet ([place]). 2020;398(46063):6655-6220. doi:10.1016/O[address]907-2856([id number]. 2. Diagnosis and Treatment of Alcohol-Associated Liver Disease: A Review. Miguel A AK, Ratna P. MEGAN. 202;326(2):165-176. doi:10.1001/megan.2021.7683. 3. Treatment of Patients with Cirrhosis. Ketan PS, Coco BA. [facility]. 2016;375(8):767-77. doi:10.1056/[id number]. 4. The Safe Use of Analgesics in Patients With Cirrhosis: A Narrative Review. Fani J, Chavez ES, Mayo N. The [employer] Journal of Medicine. 2023;137(2):99- 106. doi:10.1016/j.amjmed.202.10.022. 5. [facility]ASLD Practice Guidance: Palliative Care and Symptom-Based Management in Decompensated Cirrhosis. Jolie SS, Abel L, Ba A, et al. Hepatology ([place], [place] 2021;76(3):819-853. doi:10.1002/hep.44519. 6. Review Article: Prescribing Medications in Patients With Cirrhosis - A Practical Guide. Spike JH, Yesenia HarpG. Alimentary Pharmacology & Therapeutics. 2013;37(12):1132-56. doi:10.1111/apt.92831. 7. [employer]. Food and Drug Administration. Updated date: 2024-05-20. 8. Analgesics in Patients With Hepatic Impairment: Pharmacology and Clinical Implications. Ashaa M, Andrew B, Fernson M, Daali Y, Desmmelva J. Drugs. 2 012;72(12):1645-69. doi:10.2165/[id number]. 9. Steatotic Liver Disease. Simon M, Steven S, Ulises GOLDMAN, Enedina A. Lancet ([place]). 2023;404(76490):3250-4953. doi:10.1016/R5762-3357([id number])[id number]. Referrals: NO PRIMARY CARE PROVIDER (PCP) Prescriptions Oxycodone Hcl (Oxycodone Hcl) 5 Mg Tablet 1 TAB PO Q12H PRN PRN for pain for 3 Days, #6 TAB Prov: LITTLE ALVAREZ CLINICAL DATA MANAGEMENT DIRECTOR 04/12/25 Furosemide 40 MG (Lasix) 40 Mg Tablet 1 TAB PO DAILY for 30 Days, #30 TAB Prov: LITTLE ALVAREZ CLINICAL DATA MANAGEMENT DIRECTOR 04/12/25 Spironolactone (Aldactone) 50 Mg Tablet 1 TAB PO DAILY for 30 Days, #30 TAB 0 Refills Prov: LITTLE ALVAREZ NP 04/12/25 Education Educated: Patient Educated regarding: diagnosis, treatment, prognosis, need for follow up Signature Scribe Signature: x Attestation: The note accurately reflects work and decisions made by me.Little Yepez NP 04/12/25 17:26 LITTLE ALVAREZ NP Apr 12, 2025 13:26
[2025-04-12 13:28] LABS: AMORPHOUS URATES 1+; MUCUS STRANDS FEW /LPF (Neg); SQUAMOUS EPITHELIAL CELL,UR MANY /LPF (FEW)
[2025-04-12 13:29] LABS: PLATELET ESTIMATE NORMAL
[2025-04-12 14:15] LABS: PRO BRAIN NATRIURETIC PEPTIDE 3977 PG/ML (0-125)
[2025-04-12 14:19] LABS: ETHANOL < 10 MG/DL (<10)
--- NOTE | 2025-04-12 14:53 | RADIOLOGY REPORT ---
CLINICAL INFORMATION: Elevated transaminases. TECHNIQUE: Grayscale sonographic imaging of the right upper quadrant of the abdomen was performed, assisted by color Doppler technique. COMPARISON: CT CT ABDOMEN PELVIS W/ IV CONTRAST on DOS: 04/04/25, CT CT ABDOMEN PELVIS on DOS: 11/26/24 FINDINGS: The gallbladder is surgically absent. The common bile duct measures 5.8 mm in diameter, within normal limits. The liver is enlarged, measuring up to 19.4 cm in craniocaudal dimension. Increased echogenicity of the liver consistent with fatty infiltration. The pancreas is obscured by bowel gas. The right kidney measures 11.6 cm. There is no hydronephrosis. Grossly unremarkable cortical echogenicity and cortical thickness, although limited evaluation of the right kidney due to suboptimal sonographic penetration of the liver. IMPRESSION: 1. Hepatomegaly and hepatic steatosis. 2. Cholecystectomy. No biliary ductal dilatation.
--- NOTE | 2025-04-12 16:49 | ELECTROCARDIOGRAPH REPORT ---
[facility] Test Date: 2025-04-12 Test Time: 16:48:07 Pat Name: BRITTANY STEELE Department: [facility] Patient ID: [facility]-[id number] Room: Gender: F Trailer Chief: : 1980 Requested By: DAVID ALVAREZ Order Number: [id number] Reading MD: Dr. ASHLEIGH Batres Measurements Intervals [place] Rate: 106 P: 67 NM: 165 QRS: 103 QRSD: 166 T: 143 QT: 344 QTc: 457 Interpretive Statements Sinus tachycardia Right bundle branch block Abnormal T, consider ischemia, lateral leads Baseline wander in lead(s) I,II,aVR,aVF,V3 Electronically Signed On 04-14-2025 18:39:[address] ASHLEIGH Batres Please click the below link to view image of tracing.
[2025-04-12 16:56] LABS: INR 1.0 INR
[2025-04-12] MEDS ORDERED: FURO40TA4 PO (17:18)
[2025-04-12] MEDS ORDERED: SPIR50TA PO (17:18)
[2025-04-12] MEDS ORDERED: OXYC-481 PO (17:24)
[2025-04-12] MEDS: oxyCODONE IR 5mg (immed. release) tablet PO ONE (17:28)
[2025-04-12 18:24] VITALS: BP 140/92; PULSE 100; RESP 15; O2SAT 99
== END 2025-04-12 18:42 | disposition home or self-care (01) ==
LOC: ER 11:53
DX: R74.01 Elevation of levels of liver transaminase levels (principal); K70.31 Alcoholic cirrhosis of liver with ascites; G89.4 Chronic pain syndrome; F31.9 Bipolar disorder, unspecified; G43.909 Migraine, unspecified, not intractable, without status migrainosus; F41.9 Anxiety disorder, unspecified; M79.7 Fibromyalgia; R06.00 Dyspnea, unspecified; Z87.19 Personal history of other diseases of the digestive system; Z88.5 Allergy status to narcotic agent; Z88.6 Allergy status to analgesic agent; Z88.8 Allergy status to other drugs, medicaments and biological substances; Z90.49 Acquired absence of other specified parts of digestive tract; Z98.51 Tubal ligation status; Z86.73 Personal history of transient ischemic attack (TIA), and cerebral infarction without residual deficits; Z98.890 Other specified postprocedural states
CPT/HCPCS: 36415; 76700; 80053; 81001; 81025; 82140; 83690; 83880; 84484; 85008; 85025; 85610; 93005; 96374; 99285; G0480; J1938; 80320

== ENCOUNTER 2025-04-13 20:23 | Emergency (ER) | payer MEDICARE, MEDICAID ==
[~2025-04-13] VITALS: Ht 157.5 cm; Wt 83.0 kg
[~2025-04-13 20:23] MED LIST changes: +FURO40TA4 PO; +OXYC-481 PO; +SPIR50TA PO
[2025-04-13 20:33] VITALS: TEMP 97.8
[2025-04-14] MEDS: HYDROcodone/acetaminophen 5mg/325mg tablet PO ONE (01:08)
[2025-04-14 01:09] VITALS: BP 133/97; PULSE 105; RESP 17; O2SAT 100
--- NOTE | 2025-04-14 01:14 | Physician Documentation ---
HPI ~ General Chief Complaint: Medication Request Stated Complaint: MED REQUEST Time Seen by MD: 01:09 Primary Medical Doctor: riky groves History of Present Illness HPI Comments This is a pleasant 44-year-old female that presents to the emergency department for medication refill. Patient was seen here yesterday discharged by Little Browne. Little Browne did a thorough workup discharge this patient with appropriate medications. Patient reports that she went to the pharmacy unable to tack picker 1 of the prescriptions that was sent patient reported to the ER very late in the day today's that we were unable to correct the prescription for her. We were able to give her 1 of the medication that she is missing a [place] 5 I am the patient will follow up with the pharmacy tomorrow or call here to the emergency department to see if we can help her correct the issue with her prescription. Patient denies any new symptoms at this time. Medication Reconciliation Allergies: Coded Allergies: oxytocin (Verified Allergy, Severe, 04/04/25) medroxyprogesterone (Verified Allergy, Intermediate, HIVES, 04/13/25) naproxen (Verified Allergy, Unknown, 04/04/25) Scheduled Amlodipine Besylate (Amlodipine Besylate), 1 TAB PO DAILY, (Reported) Atorvastatin Calcium (Atorvastatin Calcium), 1 TAB PO DAILY, (Reported) Ferrous Sulfate (Ferrous Sulfate), 1 TAB PO Q48H, (Reported) Furosemide 40 MG (Lasix), 1 TAB PO DAILY Lisinopril* (Lisinopril*), 1 TAB PO DAILY, (Reported) Pregabalin* (Lyrica*), 1 CAP PO BID Spironolactone (Aldactone), 1 TAB PO DAILY Scheduled PRN Chlordiazepoxide Hcl (Librium), 1 CAP PO TID PRN for anxiety Oxycodone Hcl (Oxycodone Hcl), 1 TAB PO Q12H PRN PRN for pain Past Medical History Past Medical History: CVA/TIA/Stroke, Headache, Migraine, Pancreatitis, Chronic Pain, Chronic Back Pain, Fibromyalgia, Anxiety, Bipolar, Depression Past Surgical History: cholecystectomy, , tubal ligation Alcohol Use: Abuse Drug Use: none Lives with: Family Lives In: Home Occupation: disabled Review of Systems ROS As stated above in the HPI, otherwise all systems are reviewed and negative. Physical Exam Physical Exam Vital Signs: Temperature: 97.8, Source: Oral, Heart Rate: 115, Respiratory Rate: 17, BP: 113/71, Pulse Oximetry: 99, Weight: 83.050 Oxygen Flow Rate: 0 Physical Exam VITALS: Reviewed and as above. GENERAL: Alert, no apparent distress. NEURO: Oriented x4, No motor or sensory deficit PSYCH: Normal mood and affect, no agitation Progress Results/Orders Results/Orders Completed Orders - OLIMPIA SAGASTUME OWNER OPERATOR Hydrocodone/Apap 5/325mg Tab ([place] 5/32 (04/14/25 00:20) Medications Received in ER Medications (Trade) Dose Ordered Sig/Emre Route PRN Reason Start Time Stop Time Status Last Admin Dose Admin ([place] 5/325mg tablet) 1 tab ONCE ONCE PO 04/14/25 00:20 04/14/25 00:22 DC 04/14/25 01:08 1 TAB Vital Signs 04/13/25 04/14/25 20:33 01:08 Temp 97.8 Pulse 115 Resp 20 17 B/P (MAP) 113/71 Pulse Ox 99 O2 Flow Rate 0 Medical Decision Making Additional information obtaine: other Findings A Differential Dx:Considerations: Include: Adverse circumstances, Economic, Psychosocial, Medical services unavail., Medication refill, Medication non- compliance, Other Departure Disposition: 01 HOME / SELF CARE / HOMELESS Impression: Primary Impression: General medical exam Additional Impressions: Medication administered Medication refill Condition: Stable Discharge Instructions: Medicine Refill at the Emergency Department Additional Instructions: This is a pleasant 44-year-old female that presents to the emergency department for medication refill. Patient was seen here yesterday discharged by Little Browne. Little Browne did a thorough workup discharge this patient with appropriate medications. Patient reports that she went to the pharmacy unable to tack picker 1 of the prescriptions that was sent patient reported to the ER very late in the day today and we were unable to correct the prescription for her. We were able to give her 1 of the medication that she is missing a [place] 5. I am the patient will follow up with the pharmacy tomorrow or call here to the emergency department to see if we can help her correct the issue with her prescription. Patient denies any new symptoms at this time. Referrals: NO PRIMARY CARE PROVIDER (PCP) Education Educated: Patient Educated regarding: diagnosis, treatment, need for follow up Signature Scribe Signature: A Attestation: Scribed for Emergency,Department by LINDSAY Pollard . 04/14/25 01:14 OLIMPIA SAGASTUME Apr 14, 2025 01:14
== END 2025-04-14 01:36 | disposition home or self-care (01) ==
LOC: ER 20:23
DX: Z00.00 Encounter for general adult medical examination without abnormal findings (principal); M79.7 Fibromyalgia; G89.29 Other chronic pain; F31.9 Bipolar disorder, unspecified; F41.9 Anxiety disorder, unspecified; G43.909 Migraine, unspecified, not intractable, without status migrainosus; Z76.0 Encounter for issue of repeat prescription; Z86.73 Personal history of transient ischemic attack (TIA), and cerebral infarction without residual deficits; Z90.49 Acquired absence of other specified parts of digestive tract; Z88.8 Allergy status to other drugs, medicaments and biological substances; Z98.51 Tubal ligation status; Z87.19 Personal history of other diseases of the digestive system; Z79.899 Other long term (current) drug therapy
CPT/HCPCS: 99283

== ENCOUNTER 2025-04-23 06:48 | Emergency (ER) | payer MEDICARE, MEDICAID ==
[~2025-04-23] VITALS: Ht 157.5 cm; Wt 78.8 kg
[~2025-04-23 06:48] MED LIST changes: -OXYC-481 PO
[2025-04-23 06:56] VITALS: TEMP 98.7
--- NOTE | 2025-04-23 07:27 | Physician Documentation ---
History of Present Illness General Chief Complaint: Multiple Medical Complaints Stated Complaint: LIVER PAIN/BODY ACHES Time Seen by MD: 07:26 Primary Medical Doctor: riky groves History of Present Illness Initial Comments The patient is a 44-year-old female who has got a history of alcoholic liver failure who presents to the emergency room with the abdominal pain and a feeling of abdominal distention and leg swelling as well. The patient has been dealing with alcohol withdrawal she states she has a drank in the last 25 days but she states she has significant anxiety and she has been out of her pain medication as well that she has been taking for her liver pain as well as her fibromyalgia. The patient states that her mid-level providers saw yesterday and gave her a prescription for thiamine and folate. The patient states she has significant anxiety. She was on some Librium she has now run out of. Patient's symptoms are moderate and persistent. The patient was on Lasix as well as spironolactone 40 mg once a day of Lasix and 50 mg of the spironolactone she states she continues to have swelling in her lower extremities and some feeling of abdominal fullness and discomfort. Medication Reconciliation Allergies: Coded Allergies: oxytocin (Verified Allergy, Severe, 04/23/25) medroxyprogesterone (Verified Allergy, Intermediate, HIVES, 04/23/25) naproxen (Verified Allergy, Unknown, 04/23/25) Scheduled Amlodipine Besylate (Amlodipine Besylate), 1 TAB PO DAILY, (Reported) Atorvastatin Calcium (Atorvastatin Calcium), 1 TAB PO DAILY, (Reported) Ferrous Sulfate (Ferrous Sulfate), 1 TAB PO Q48H, (Reported) Furosemide 40 MG (Lasix), 1 TAB PO DAILY Furosemide 40 MG (Lasix), 1 TAB PO BID Lisinopril* (Lisinopril*), 1 TAB PO DAILY, (Reported) Pregabalin* (Lyrica*), 1 CAP PO BID Spironolactone (Aldactone), 1 TAB PO DAILY Spironolactone (Spironolactone), 1 TAB PO BID Scheduled PRN Chlordiazepoxide Hcl (Librium), 1 CAP PO TID PRN for anxiety Lorazepam (Ativan), 1 TAB PO Q12H PRN PRN for anxiety Past Medical History Past Medical History: CVA/TIA/Stroke, Headache, Migraine, Pancreatitis, Chronic Pain, Chronic Back Pain, Fibromyalgia, Anxiety, Bipolar, Depression Past Surgical History: cholecystectomy, , tubal ligation Smoking: Cigarettes, Less than 1 pack/day Alcohol Use: Abuse Drug Use: none Lives with: Family Lives In: Home Occupation: disabled Physical Exam Physical Exam Vital Signs: Temperature: 98.7, Heart Rate: 112, Respiratory Rate: 18, BP: 146/91, Pulse Oximetry: 98, Weight: 78.800 Oxygen Flow Rate: 0 Progress Results/Orders Results/Orders Completed Orders - CHAN BRANDT MD BMP (04/23/25 07:44) Lorazepam Tablet (Ativan Tablet) (04/23/25 07:45) Vital Signs 04/23/25 04/23/25 04/23/25 06:56 07:59 08:13 Temp 98.7 Pulse 112 110 Resp 18 18 B/P (MAP) 146/91 137/82 Pulse Ox 98 96 O2 Flow Rate 0 Laboratory Tests Test 04/23/25 08:07 Sodium Level 140 Potassium Level 3.7 Chloride Level 104 Carbon Dioxide Level 28.0 Anion Gap 8 Blood Urea Nitrogen 10 Creatinine 0.57 Estimated GFR/1.73 m2 > 90 BUN/Creatinine Ratio 17.5 Glucose Level 123 H Calcium Level 8.6 Albumin 2.6 L Chemistry Comments Medical Decision Making Additional information obtaine: old records Findings patient with chronic pain and anxiety, patient has run out of her norco and has been using the emergency department to get pain releif. I explained will will not be giving her ny further narcotic prescriptions I am going to give her a prescription for a short course of ativan, she was told this is a one time script, I will increase her lasix and spironolactone per her request, past visits reviewed Differential Diagnosis colitis, cirrhosis, bacterial perotinitis Departure Disposition: HOME / SELF CARE / HOMELESS Impression: Primary Impression: Liver failure Qualified Codes: K72.10 - Chronic hepatic failure without coma Additional Impression: Anxiety Referrals: NO PRIMARY CARE PROVIDER (PCP) Prescriptions Furosemide 40 MG (Lasix) 40 Mg Tablet 1 TAB PO BID for 30 Days, #60 TAB Prov: CHAN BRANDT MD 04/23/25 Spironolactone (Spironolactone) 100 Mg Tablet 1 TAB PO BID for 30 Days, #30 TAB 0 Refills Prov: CHAN BRANDT MD 04/23/25 Lorazepam (Ativan) 1 Mg Tablet 1 TAB PO Q12H PRN PRN for anxiety for 14 Days, #28 TAB 0 Refills Prov: CHAN BRANDT MD 04/23/25 Signature Scribe Signature: no scribe Attestation: The note accurately reflects work and decisions made by me.Chan Brandt MD 04/25/25 19:23 CHAN BRANDT MD Apr 23, 2025 07:27
[2025-04-23] MEDS ORDERED: SPIR100T5 PO (07:49)
[2025-04-23] MEDS ORDERED: FURO40TA4 PO (07:49)
[2025-04-23] MEDS ORDERED: LORA-269 PO (07:49)
[2025-04-23 08:13] VITALS: BP 137/82; PULSE 110; RESP 18; O2SAT 96
[2025-04-23 08:27] LABS: CREATININE 0.57 MG/DL (0.40-0.90); TOTAL CARBON DIOXIDE 28.0 MMOL/L (24-32); eCRCL 101 ML/MIN; eGFR > 90 ML/MIN
== END 2025-04-23 08:13 | disposition home or self-care (01) ==
LOC: ER 06:49
DX: K72.90 Hepatic failure, unspecified without coma (principal); F41.9 Anxiety disorder, unspecified; F10.239 Alcohol dependence with withdrawal, unspecified; F31.9 Bipolar disorder, unspecified; G89.29 Other chronic pain; M79.7 Fibromyalgia; F17.210 Nicotine dependence, cigarettes, uncomplicated; G43.909 Migraine, unspecified, not intractable, without status migrainosus; Y90.9 Presence of alcohol in blood, level not specified; Z86.73 Personal history of transient ischemic attack (TIA), and cerebral infarction without residual deficits; Z90.49 Acquired absence of other specified parts of digestive tract; Z98.51 Tubal ligation status; Z88.8 Allergy status to other drugs, medicaments and biological substances; Z87.19 Personal history of other diseases of the digestive system; Z79.899 Other long term (current) drug therapy; Z98.890 Other specified postprocedural states
CPT/HCPCS: 36415; 80048; 99283

== ENCOUNTER 2025-05-01 00:57 | Emergency (ER) | payer MEDICARE, MEDICAID ==
[~2025-05-01] VITALS: Ht 152.4 cm; Wt 70.0 kg
[~2025-05-01 00:57] MED LIST changes: +LORA-269 PO; +SPIR100T5 PO
[2025-05-01 01:12] VITALS: BP 152/95; PULSE 116; RESP 18; TEMP 98; O2SAT 97
[2025-05-01 02:09] LABS: MEAN PLATELET VOLUME 7.9 FL (7.4-10.4); RED CELL DISTRIBUTION WIDTH 22.3 % (11.5-14.5)
[2025-05-01 02:11] LABS: URINE HCG NEGATIVE (NEG)
[2025-05-01 02:20] LABS: URINE AMPHETAMINE SCREEN NEGATIVE (Neg); URINE BARBITUATE SCREEN NEGATIVE (Neg); URINE BENZODIAZEPINES SCREEN POSITIVE (Neg); URINE CANNABINOID SCREEN NEGATIVE (Neg); URINE COCAINE SCREEN NEGATIVE (Neg); URINE METHADONE SCREEN NEGATIVE (Neg); URINE OPIATE SCREEN NEGATIVE (Neg); URINE PHENCYCLIDINE SCREEN NEGATIVE (Neg)
[2025-05-01 02:22] LABS: CREATININE 0.55 MG/DL (0.40-0.90); ETHANOL 242 MG/DL (<10); TOTAL CARBON DIOXIDE 26.3 MMOL/L (24-32); eCRCL 95 ML/MIN; eGFR > 90 ML/MIN
[2025-05-01 02:25] LABS: LEUKOCYTE ESTERASE ,URINE LARGE (Neg); NITRITES, URINE NEGATIVE (Neg); OCCULT BLOOD,URINE TRACE-INTACT (Neg)
[2025-05-01 02:26] LABS: UA COLLECTION TYPE NON-SPECIFIED
[2025-05-01 02:34] LABS: SQUAMOUS EPITHELIAL CELL,UR MANY /LPF (FEW)
[2025-05-01 02:35] LABS: AMORPHOUS URATES 3+; MUCUS STRANDS FEW /LPF (Neg)
== END 2025-05-01 03:51 | disposition left against medical advice (07) ==
LOC: ER 00:57
DX: Z00.8 Encounter for other general examination (principal); Z88.8 Allergy status to other drugs, medicaments and biological substances; Z79.899 Other long term (current) drug therapy
CPT/HCPCS: 36415; 80053; 80305; 81001; 81025; 83690; 85025; 99282; G0480; 80320; 99281

== ENCOUNTER 2025-05-03 14:38 | Emergency (ER) | payer MEDICARE, MEDICAID ==
[~2025-05-03] VITALS: Ht 157.5 cm; Wt 78.2 kg
[2025-05-03 14:44] VITALS: BP 141/82; PULSE 117; RESP 18; TEMP 98.3; O2SAT 96
--- NOTE | 2025-05-03 14:54 | Physician Documentation ---
History of Present Illness ~ Chief Complaint: ETOH Stated Complaint: ALL OVER BODY PAIN Primary Medical Doctor: riky groves Source: patient Mode of Arrival: POV Exam Limitations: no limitations HPI 44-year-old with history of alcohol abuse stating she has liver failure and abdominal pain nausea vomiting. Patient's last drink was today. Tetanus within 5 years?: No Medication Reconciliation Allergies: Coded Allergies: oxytocin (Verified Allergy, Severe, 04/23/25) medroxyprogesterone (Verified Allergy, Intermediate, HIVES, 04/23/25) naproxen (Verified Allergy, Unknown, 04/23/25) Scheduled Amlodipine Besylate (Amlodipine Besylate), 1 TAB PO DAILY, (Reported) Atorvastatin Calcium (Atorvastatin Calcium), 1 TAB PO DAILY, (Reported) Ferrous Sulfate (Ferrous Sulfate), 1 TAB PO Q48H, (Reported) Furosemide 40 MG (Lasix), 1 TAB PO DAILY Furosemide 40 MG (Lasix), 1 TAB PO BID Lisinopril* (Lisinopril*), 1 TAB PO DAILY, (Reported) Pregabalin* (Lyrica*), 1 CAP PO BID Spironolactone (Aldactone), 1 TAB PO DAILY Spironolactone (Spironolactone), 1 TAB PO BID Scheduled PRN Chlordiazepoxide Hcl (Librium), 1 CAP PO TID PRN for anxiety Lorazepam (Ativan), 1 TAB PO Q12H PRN PRN for anxiety Past Medical History Past Medical History: CVA/TIA/Stroke, Headache, Migraine, Pancreatitis, Chronic Pain, Chronic Back Pain, Fibromyalgia, Anxiety, Bipolar, Depression Past Surgical History: cholecystectomy, , tubal ligation Alcohol Use: Abuse Drug Use: none Lives with: Family Lives In: Home Occupation: disabled Review of Systems All Other Systems at this time: Reviewed and Negative Gastrointestinal: Reports: see HPI Physical Exam Vital Signs: RN Vital Signs have been reviewed: Yes, Temperature: 98.3, Source: Oral, Heart Rate: 117, Respiratory Rate: 18, BP: 141/82, Pulse Oximetry: 96, Weight: 78.200 Physical Exam General: Alert, no apparent distress. HEENT: moist mucous membranes. Neck: Full range of motion. Respiratory: No respiratory distress speaking in full sentences Chest: No accessory muscle use. Cardiovascular: Appears well perfused Neurologic: Oriented x4. Psychiatric: Argumentative Skin: Normal color, warm and dry. No edema, no ecchymosis. Progress Results/Orders Results/Orders Completed Orders - YAKELIN MAIER NP Cbc/Diff (05/03/25 14:48) Lipase (05/03/25 14:48) Ethanol (05/03/25 14:48) MG (05/03/25 14:48) Ammonia (05/03/25 14:48) BMP (05/03/25 14:48) Ua W/Microscopic, Cult If Ind (05/03/25 16:11) Vital Signs 05/03/25 14:44 Temp 98.3 Pulse 117 Resp 18 B/P (MAP) 141/82 Pulse Ox 96 Laboratory Tests Test 05/03/25 14:59 05/03/25 16:11 White Blood Count 10.9 Red Blood Count 3.80 L Hemoglobin 12.0 Hematocrit 37.5 Mean Corpuscular Volume 98.8 H Mean Corpuscular Hemoglobin 31.6 H Mean Corpuscular Hemoglobin Concent 32.0 L Red Cell Distribution Width 22.0 H Platelet Count 511 H Mean Platelet Volume 7.7 Neutrophils (%) (Auto) 61.7 Lymphocytes (%) (Auto) 29.0 Monocytes (%) (Auto) 6.1 Eosinophils (%) (Auto) 1.8 Basophils (%) (Auto) 1.4 H Neutrophils # (Auto) 6.7 Lymphocytes # (Auto) 3.2 Monocytes # (Auto) 0.7 Eosinophils # (Auto) 0.2 Basophils # (Auto) 0.2 CBC Comment Platelet Estimate Increased Red Blood Cell Morphology Perf Basophilic Stippling Anisocytosis 3+ Macrocytosis 1+ Target Cells Few Sodium Level 142 Potassium Level 3.2 L Chloride Level 104 Carbon Dioxide Level 23.3 L Anion Gap 15 Blood Urea Nitrogen 2 L Creatinine 0.48 Estimated GFR/1.73 m2 > 90 BUN/Creatinine Ratio 4.2 L Glucose Level 109 H Calcium Level 8.2 L Magnesium Level 1.7 Ammonia 46 H Albumin 2.9 L Lipase 115 H Chemistry Comments Ethyl Alcohol Level 215 H Urine Specimen Description Cln catch midstream Urine Color Yellow Urine Clarity Cloudy Urine pH 6.5 Urine Specific [place] 1.015 Urine Protein 30 H Urine Glucose (UA) Negative Urine Ketones Negative Urine Occult Blood Trace-intact Urine Nitrite Negative Urine Bilirubin Moderate Urine Urobilinogen 2.0 H Urine Leukocyte Esterase Large H Urine RBC 3-10 Urine WBC Tntc H Urine Squamous Epithelial Cells Many Urine Bacteria 3+ Urine Mucus Few Urine Trichomonas Mod Urine Culture Indicated Rejected for culture Volume Urine Centrifuged 10 ml Urine Comment Medical Decision Making Additional information obtaine: N/A Findings MSE complete labs ordered to evaluate cleanse liver failure although patient did not appear jaundice. Patient eloped Differential Dx:Considerations: Intoxication - ETOH, Intoxication - other drug, Hepatitis Departure Time of Disposition: 18:33 Disposition: 07 LEFT AWOL/ELOPED Impression: Primary Impression: Alcoholic intoxication Additional Impression: Alcohol abuse Condition: Stable Referrals: NO PRIMARY CARE PROVIDER (PCP) Signature Scribe Signature: No scribe Attestation: The note accurately reflects work and decisions made by me.Yakelin Maier - LINDSAY 05/03/25 18:33 YAKELIN MAIER NP May 03, 2025 14:54
[2025-05-03 15:22] LABS: MEAN PLATELET VOLUME 7.7 FL (7.4-10.4); RED CELL DISTRIBUTION WIDTH 22.0 % (11.5-14.5)
[2025-05-03 15:27] LABS: CREATININE 0.48 MG/DL (0.40-0.90); ETHANOL 215 MG/DL (<10); TOTAL CARBON DIOXIDE 23.3 MMOL/L (24-32); eCRCL 120 ML/MIN; eGFR > 90 ML/MIN
[2025-05-03 15:37] LABS: PLATELET ESTIMATE INCREASED
[2025-05-03 17:15] LABS: LEUKOCYTE ESTERASE ,URINE LARGE (Neg); NITRITES, URINE NEGATIVE (Neg); OCCULT BLOOD,URINE TRACE-INTACT (Neg)
[2025-05-03 17:20] LABS: UA COLLECTION TYPE CLN CATCH MIDSTREAM
[2025-05-03 17:22] LABS: MUCUS STRANDS FEW /LPF (Neg); SQUAMOUS EPITHELIAL CELL,UR MANY /LPF (FEW)
== END 2025-05-03 18:11 | disposition left against medical advice (07) ==
LOC: ER 14:38
DX: F10.129 Alcohol abuse with intoxication, unspecified (principal); F31.9 Bipolar disorder, unspecified; F41.9 Anxiety disorder, unspecified; G89.29 Other chronic pain; M79.7 Fibromyalgia; Z86.73 Personal history of transient ischemic attack (TIA), and cerebral infarction without residual deficits; Z87.19 Personal history of other diseases of the digestive system; Z98.51 Tubal ligation status; Z98.890 Other specified postprocedural states; Z90.49 Acquired absence of other specified parts of digestive tract; Z88.8 Allergy status to other drugs, medicaments and biological substances; Z79.899 Other long term (current) drug therapy; Y90.9 Presence of alcohol in blood, level not specified
CPT/HCPCS: 36415; 80048; 81001; 82140; 83690; 83735; 85008; 85025; 99283; G0480; 80320